=== PATIENT | female | born 1980 | race Caucasian/White ===

== ENCOUNTER 2017-03-20 19:48 | Emergency (ER) | payer BC ==
[2017-03-20 21:25] LABS: Basophils % (A) 1 %; CH 32.7; CHCM 36.4; Eosinophils # (A) 0.1 k/uL (0-0.7); Eosinophils % (A) 2 %; HCT 36.3 % (34.0-46.0); HDW 2.61; HGB 12.8 gm/dL (11.4-16.0); Luc # (Auto) 0.21; Luc % (Auto) 3; Lymphocytes # (A) 2.9 k/uL (1.0-4.8); Lymphocytes % (A) 42 %; MCH 31.8 pg (25.0-35.0); MCHC 35.2 g/dL (31.0-37.0); MCV 90.3 fL (80.0-100.0); Mean Platelet Volume 7.5; Monocytes # (A) 0.4 k/uL (0-1.0); Monocytes % (A) 6 %; Neutrophils # (A) 3.2 k/uL (1.3-7.7); Neutrophils % (A) 47 %; RBC 4.01 m/uL (3.80-5.40); RDW 13.6 % (11.5-15.5); WBC (Perox) 6.98
[2017-03-20 21:29] LABS: Appearance,Urine Clear (Clear); Bacteria,Urine Occasional /hpf; Bilirubin,Urine Negative (Negative); Glucose,Urine (UA) Negative (Negative); Ketones,Urine Negative (Negative); Leukocyte Esterase,Urine Large (Negative); Mucus,Urine Rare /hpf; Nitrite,Urine Negative (Negative); Particle Count 3045; Protein,Urine Negative (Negative); Specific Gravity,Urine 1.007 (1.001-1.035); Squamous Epithelial Cell,Urine 5 /hpf (0-4); UA Billing (MACRO vs. MICRO) MICRO; Urobilinogen,Urine <2.0 mg/dL (<2.0); WBC,Urine 20 /hpf (0-5)
--- NOTE | 2017-03-20 21:31 | ED ---
General Adult HPI - General Chief complaint: Abdominal Pain Stated complaint: Abd Pain Time Seen by Provider: 03/20/17 21:02 Source: patient, RN notes reviewed, old records reviewed Mode of arrival: ambulatory Limitations: no limitations - History of Present Illness Initial comments: 36-year-old female presents with a three-week history of abdominal pain and nausea. Patient states pain began this quite mild, with associated with nausea and no vomiting. Pain is crampy in nature. Denies significant pain at this time. When the pain is present it is sharp in nature. Over the past few weeks it has worsened primarily in the epigastric region and left side. Patient's last bowel movement was 2 days ago. This is normal for her. She denies any dysuria. Denies diarrhea. Denies fever or chills. Patient has had her gallbladder removed in the past. She's also had 2 exploratory laparoscopies for lysis of adhesions. Patient denies any recent travel, no new pets in the home. - Related Data Home Medications Medication Instructions Recorded Confirmed ALPRAZolam [Xanax] 0.25 mg PO TID PRN 08/16/15 03/20/17 Butalb/Acetaminophen/Caffeine 1 - 2 cap PO TID PRN 08/16/15 02/20/16 [Fioricet 50-300-40 mg Capsule] Desvenlafaxine Succinate [Pristiq 50 mg PO DAILY 08/16/15 03/20/17 ER] Gabapentin [Neurontin] 100 mg PO DAILY 08/16/15 03/20/17 Methocarbamol [Robaxin] 500 mg PO TID 08/16/15 03/20/17 Fluticasone Nasal [place] [Flonase 1 spray EA NOSTRIL DAILY PRN 01/12/16 03/20/17 Nasal [place]] Medroxyprogesterone Acetate 150 mg IM Q90D 01/12/16 03/20/17 [Depo-Provera] SUMAtriptan SUCCINATE [Imitrex] 100 mg PO BID PRN 01/12/16 03/20/17 Previous Rx's Medication Instructions Recorded Docusate [Colace] 100 mg PO BID #30 capsule 01/13/16 Ondansetron Odt [Zofran Odt] 4 mg PO Q8HR PRN #10 tab 03/20/17 Allergies Allergy/AdvReac Type Severity Reaction Status Date / Time codeine Allergy Hallucinati Verified 03/20/17 20:03 ons Sulfa (Sulfonamide Allergy Rash/Hives Verified 03/20/17 20:03 Antibiotics) Review of Systems ROS Statement: Those systems with pertinent positive or pertinent negative responses have been documented in the HPI. ROS Other: All systems not noted in ROS Statement are negative. Past Medical History Additional Past Medical History / Comment(s): migraines, POTS, neuropathy, Chiari malformation (brain tissue extents into spinal canal- repaired with surgery) History of Any Multi-Drug Resistant Organisms: None Reported Past Surgical History: Section, Cholecystectomy Additional Past Surgical History / Comment(s): brain surg, Past Anesthesia/Blood Transfusion Reactions: Postoperative Nausea & Vomiting ( PONV) Past Psychological History: Anxiety, Depression Smoking Status: Never smoker Past Alcohol Use History: Occasional Past Drug Use History: None Reported - Past Family History Sister(s) Additional Family Medical History / Comment(s): neurotube defect General Exam Limitations: no limitations General appearance: alert, in no apparent distress Head exam: Present: atraumatic, normocephalic Eye exam: Present: normal appearance, PERRL ENT exam: Present: normal exam, mucous membranes moist Neck exam: Present: normal inspection. Absent: tenderness, meningismus, full ROM Respiratory exam: Present: normal lung sounds bilaterally. Absent: respiratory distress, wheezes Cardiovascular Exam: Present: regular rate, normal rhythm GI/Abdominal exam: Present: soft, tenderness (Course in the left lower quadrant and epigastrium). Absent: distended, guarding, rebound, rigid Extremities exam: Present: normal inspection, full ROM, normal capillary refill Neurological exam: Present: alert, oriented X3, CN II-XII intact. Absent: motor sensory deficit Psychiatric exam: Present: normal affect, normal mood Skin exam: Present: warm, dry, intact. Absent: cyanosis, diaphoretic Course Vital Signs 03/20/17 19:59 Temperature 97.9 F Pulse Rate 78 Respiratory 18 Rate Blood Pressure 121/66 O2 Sat by Pulse 97 Oximetry - Reevaluation(s) Reevaluation #1: 03/20/17 21:49 On reevaluation, patient's pain is still mouth, she does not want anything for pain. No episodes of nausea and vomiting while in the emergency department. Medical Decision Making - Medical Decision Making 36-year-old female presenting with 3 week history of nausea and crampy abdominal pain. There is no history of vomiting. Patient's last bowel movement was 2 days ago. This is normal for her. Laboratory studies are obtained, no elevated white blood cell count, normal hemoglobin, electrolytes all within normal limits. Urinalysis just showed 20 white blood cells, and 5 squamous cells. Patient denies dysuria. No treatment will be provided at this time. X-ray shows nondistended, normal gas pattern, no free air. Patient is informed of these results. She is comfortable following up with her primary care physician. She will be given a prescription for Zofran. Encouraged to return to the emergency department with worsening symptoms. - Lab Data Result diagrams: 03/20/17 20:43 03/20/17 20:43 Lab Results 03/20/17 03/20/17 03/20/17 Range/Units 20:43 20:43 20:43 WBC 7.0 (3.8-10.6) k/uL RBC 4.01 (3.80-5.40) m/uL Hgb 12.8 (11.4-16.0) gm/dL Hct 36.3 (34.0-46.0) % MCV 90.3 (80.0-100.0) fL MCH 31.8 (25.0-35.0) pg MCHC 35.2 (31.0-37.0) g/dL RDW 13.6 (11.5-15.5) % Plt Count 231 (150-450) k/uL Neutrophils % 47 % Lymphocytes % 42 % Monocytes % 6 % Eosinophils % 2 % Basophils % 1 % Neutrophils # 3.2 (1.3-7.7) k/uL Lymphocytes # 2.9 (1.0-4.8) k/uL Monocytes # 0.4 (0-1.0) k/uL Eosinophils # 0.1 (0-0.7) k/uL Basophils # 0.0 (0-0.2) k/uL Sodium 143 (137-145) mmol/L Potassium 3.9 (3.5-5.1) mmol/L Chloride 109 H (98-107) mmol/L Carbon Dioxide 24 (22-30) mmol/L Anion Gap 10 mmol/L BUN 10 (7-17) mg/dL Creatinine 0.80 (0.52-1.04) mg/dL Est GFR (MDRD) Af Amer >60 (>60 ml/min/1.73 sqM) Est GFR (MDRD) Non-Af >60 (>60 ml/min/1.73 sqM) Glucose 75 (74-99) mg/dL Calcium 9.4 (8.4-10.2) mg/dL Total Bilirubin 0.3 (0.2-1.3) mg/dL AST 19 (14-36) U/L ALT 36 (9-52) U/L Alkaline Phosphatase 63 (38-126) U/L Total Protein 7.1 (6.3-8.2) g/dL Albumin 4.2 (3.5-5.0) g/dL Amylase 57 (30-110) U/L Lipase 145 (23-300) U/L Urine Color Urine Appearance (Clear) Urine pH (5.0-8.0) Ur Specific Randolph (1.001-1.035) Urine Protein (Negative) Urine Glucose (UA) (Negative) Urine Ketones (Negative) Urine Blood (Negative) Urine Nitrite (Negative) Urine Bilirubin (Negative) Urine Urobilinogen (<2.0) mg/dL Ur Leukocyte Esterase (Negative) Urine WBC (0-5) /hpf Ur Squamous Epith Cells (0-4) /hpf Urine Bacteria (None) /hpf Urine Mucus (None) /hpf Urine HCG, Qual Not Detected (Not Detectd) 03/20/17 Range/Units 20:43 WBC (3.8-10.6) k/uL RBC (3.80-5.40) m/uL Hgb (11.4-16.0) gm/dL Hct (34.0-46.0) % MCV (80.0-100.0) fL MCH (25.0-35.0) pg MCHC (31.0-37.0) g/dL RDW (11.5-15.5) % Plt Count (150-450) k/uL Neutrophils % % Lymphocytes % % Monocytes % % Eosinophils % % Basophils % % Neutrophils # (1.3-7.7) k/uL Lymphocytes # (1.0-4.8) k/uL Monocytes # (0-1.0) k/uL Eosinophils # (0-0.7) k/uL Basophils # (0-0.2) k/uL Sodium (137-145) mmol/L Potassium (3.5-5.1) mmol/L Chloride (98-107) mmol/L Carbon Dioxide (22-30) mmol/L Anion Gap mmol/L BUN (7-17) mg/dL Creatinine (0.52-1.04) mg/dL Est GFR (MDRD) Af Amer (>60 ml/min/1.73 sqM) Est GFR (MDRD) Non-Af (>60 ml/min/1.73 sqM) Glucose (74-99) mg/dL Calcium (8.4-10.2) mg/dL Total Bilirubin (0.2-1.3) mg/dL AST (14-36) U/L ALT (9-52) U/L Alkaline Phosphatase (38-126) U/L Total Protein (6.3-8.2) g/dL Albumin (3.5-5.0) g/dL Amylase (30-110) U/L Lipase (23-300) U/L Urine Color Light Yellow Urine Appearance Clear (Clear) Urine pH 7.0 (5.0-8.0) Ur Specific Randolph 1.007 (1.001-1.035) Urine Protein Negative (Negative) Urine Glucose (UA) Negative (Negative) Urine Ketones Negative (Negative) Urine Blood Negative (Negative) Urine Nitrite Negative (Negative) Urine Bilirubin Negative (Negative) Urine Urobilinogen <2.0 (<2.0) mg/dL Ur Leukocyte Esterase Large H (Negative) Urine WBC 20 H (0-5) /hpf Ur Squamous Epith Cells 5 H (0-4) /hpf Urine Bacteria Occasional H (None) /hpf Urine Mucus Rare H (None) /hpf Urine HCG, Qual (Not Detectd) Disposition Clinical Impression: Abdominal pain Disposition: HOME SELF-CARE Condition: Good Instructions: Abdominal Pain (ED), Acute Nausea and Vomiting (ED) Prescriptions: Ondansetron Odt [Zofran Odt] 4 mg PO Q8HR PRN #10 tab PRN Reason: Vomiting Referrals: Catrachita Valencia III, MD [Primary Care Provider] - 1-2 days Time of Disposition: 21:54
--- NOTE | 2017-03-20 21:32 | XR ---
EXAMINATION TYPE: XR KUB DATE OF EXAM: 03/20/2017 9:21 PM CLINICAL HISTORY: Epigastric and left upper quadrant pain for 3 weeks. TECHNIQUE: 2 upright KUB images of the abdomen are obtained. COMPARISON: CT abdomen and pelvis January 12, 2016. FINDINGS: Scattered gas is seen in non-distended small bowel loops. Gas and fecal material is seen in non-distended colon. Cholecystectomy clips are now present. The lung bases are clear. No pneumoperit oneum or suspicious calcification is seen. Visualized osseous structures are intact. IMPRESSION: Overall nonobstructive bowel gas pattern.
[2017-03-20 21:34] LABS: ALT 36 U/L (9-52); AST 19 U/L (14-36); Alkaline Phosphatase 63 U/L (38-126); Amylase 57 U/L (30-110); Anion Gap 10 mmol/L; Blood Urea Nitrogen 10 mg/dL (7-17); Calcium 9.4 mg/dL (8.4-10.2); Carbon Dioxide 24 mmol/L (22-30); Chloride 109 mmol/L (98-107); Glucose 75 mg/dL (74-99); Non-African American GFR(MDRD) >60 (>60 ml/min/1.73 sqM); Potassium 3.9 mmol/L (3.5-5.1); Sodium 143 mmol/L (137-145); Total Bilirubin 0.3 mg/dL (0.2-1.3); Total Protein 7.1 g/dL (6.3-8.2)
[2017-03-20 22:03] VITALS: BP 132/68; PULSE 70; RESP 16; TEMP 97.8
== END 2017-03-20 22:01 | disposition home or self-care (01) ==
LOC: EC 19:48
DX: R10.13 Epigastric pain (principal); R10.32 Left lower quadrant pain; R11.0 Nausea; F32.9 Major depressive disorder, single episode, unspecified; F41.9 Anxiety disorder, unspecified; Z79.899 Other long term (current) drug therapy; Z88.2 Allergy status to sulfonamides; Z88.5 Allergy status to narcotic agent; Z90.49 Acquired absence of other specified parts of digestive tract
CPT/HCPCS: 36415; 74000; 80053; 81001; 81025; 82150; 83605; 83690; 85025; 99284

== ENCOUNTER 2017-04-16 08:48 | Day surgery (SDC) | payer BC ==
[2017-04-15 10:55] VITALS: BMI 23.9
[~2017-04-16 08:48] MED LIST: LACTATED RINGERS 1,000 ML IV SCH; LIDOCAINE 1% 20 ML VIAL (10MG/ML) FOR IV START INTRADERMA PRN
[2017-04-16 09:14] VITALS: TEMP 98
[2017-04-16] MEDS ORDERED: LIDOCAINE 1% 20 ML VIAL (10MG/ML) FOR IV START INTRADERMA ONE (09:19)
[2017-04-16] MEDS ORDERED: LACTATED RINGERS 1,000 ML IV ONE (09:19)
[2017-04-16 09:31] LABS: Glucose,Whole Blood 74 mg/dL (75-99)
[2017-04-16] MEDS ORDERED: LIDOCAINE 1% INJ 10MG/ML (20 ML MDV) ONE (10:13)
[2017-04-16] MEDS ORDERED: PROPOFOL 10 MG/ML 20 ML VIAL IV ONE (10:13)
--- NOTE | 2017-04-16 10:38 | P.PCN ---
Date of Procedure: 04/16/17 Procedure(s) Performed: Brief history: Patient is a pleasant 36-year-old white female, scheduled for an elective upper endoscopy as well as colonoscopy as a part of evaluation of the gastric pain for the last 6 weeks duration. She also has history of chronic constipation which has been progressively getting worse. Procedure performed: Esophagogastroduodenoscopy with biopsy Colonoscopy Preoperative diagnosis: Epigastric pain and early satiety Chronic constipation Anesthesia: MAC Procedure: After informed consent was obtained from the patient was brought into the endoscopy unit and IV sedation was administered by anesthesia under continuous monitoring. Initially upper endoscopy was done. The Olympus GF 160 video endoscope was inserted inserted into the mouth and esophagus intubated without any difficulty and was gradually advanced into the stomach and duodenum and carefully examined. The bulb and second part of the duodenum appeared normal. Biopsies were done from this area to rule out celiac disease. The scope was then withdrawn into the stomach adequately insufflated with air and upon careful examination the antrum had mild diffuse gastritis and biopsies were done from this area. The body, cardia and fundus appeared normal. The scope was then withdrawn into the esophagus. The GE junction was located at 40 cm to the incisors. It appeared regular with no erythema erosions or ulcerations. biopsies were done from the esophagus. Rest of the esophagus appeared normal. Patient tolerated the procedure well. At this time the patient continued to remain sedation. Initial digital rectal examination was normal. Olympus CF 160 video colonoscope was then inserted into the rectum and gradually advanced to the cecum without any difficulty. Careful examination was performed as the scope was gradually being withdrawn. The prep was excellent. The cecum, ascending colon, transverse colon, descending colon, sigmoid colon and rectum appeared normal. Retroflexion was performed in the rectum and no lesions were noted. Patient tolerated the procedure well. Impression: 1. Upper endoscopy revealed mild diffuse gastritis but no evidence of esophagitis or peptic ulcer disease. 2. Colonoscopy was essentially within normal limits with no evidence of colitis or colorectal neoplasia. Recommendations: Findings of this examination were discussed with the patient as well as her family. She was advised to follow with the biopsy results. In the meantime she was given a prescription for Prilosec 20 mg daily to be taken half hour before breakfast and follow antrum reflux measures.
[2017-04-16 10:49] VITALS: RESP 16
[2017-04-16 11:04] VITALS: BP 133/56; PULSE 69
== END 2017-04-16 11:39 | disposition home or self-care (01) ==
LOC: ORWHC2ENDO 08:48
PROVIDERS: ATTEND Internal Medicine Gastroenterology
DX: K29.50 Unspecified chronic gastritis without bleeding (principal); K20.9 Esophagitis, unspecified; K59.00 Constipation, unspecified; R68.81 Early satiety; Z88.5 Allergy status to narcotic agent; Z88.2 Allergy status to sulfonamides; G93.5 Compression of brain; G43.909 Migraine, unspecified, not intractable, without status migrainosus; Z79.3 Long term (current) use of hormonal contraceptives; Z79.51 Long term (current) use of inhaled steroids; Z79.899 Other long term (current) drug therapy
CPT/HCPCS: 81025; 88305; 88342; 45378; 43239; J2001; J2704

== ENCOUNTER → 2019-01-30 | Outpatient (CLI) | payer BC ==
--- NOTE | 2019-01-31 10:11 | MM ---
Reason for exam: screening (asymptomatic). Last mammogram was performed 7 years and 11 months ago. History: Took hormonal contraceptives for 4 years. Physical Findings: A clinical breast exam by your physician is recommended on an annual basis and results should be correlated with mammographic findings. MG 3D Screening Mammo W/Cad Bilateral CC and MLO view(s) were taken. Prior study comparison: March 05, 2011, CAD bilateral diagnostic mammogram. The breast tissue is heterogeneously dense. This may lower the sensitivity of mammography. There is no discrete abnormality. ASSESSMENT: Negative, BI-RAD 1 RECOMMENDATION: Routine screening mammogram of both breasts in 1 year.
== END | disposition home or self-care (01) ==
LOC: RADMAMWWP 07:11
PROVIDERS: ATTEND Family Medicine
DX: Z12.31 Encounter for screening mammogram for malignant neoplasm of breast (principal)
CPT/HCPCS: 77063; 77067

== ENCOUNTER → 2019-03-10 | Outpatient (CLI) | payer BC ==
--- NOTE | 2019-03-10 14:53 | XR ---
Right elbow HISTORY: Right elbow pain and swelling 3 views the right elbow Bone mineralization, joint spaces and alignment are maintained. There is no evident joint effusion. IMPRESSION: Normal right elbow.
== END | disposition home or self-care (01) ==
LOC: LABWHC1 14:20
PROVIDERS: ATTEND Family Medicine
DX: M25.521 Pain in right elbow (principal)

== ENCOUNTER → 2019-04-28 | Outpatient (CLI) | payer BC ==
--- NOTE | 2019-04-28 14:50 | MR ---
EXAMINATION TYPE: MR cervical spine wo/w con DATE OF EXAM: 04/28/2019 COMPARISON: MRI of the cervical spine dated 01/10/2015 HISTORY: Cervical disc degeneration at C4-C5 level. Neck pain. TECHNIQUE: Multiplanar, multisequence images of the cervical spine were acquired utilizing 7 mL intravenous Gada vist gadolinium contrast. Diffusion weighted imaging was performed. FINDINGS: Cervical spine vertebral bodies maintain normal vertebral body heights and alignment. Multi level disc desiccation is seen. Spinal cord signal in the cervical spine is within normal limits. Sli ght epidural lipomatosis of the lower cervical spine and upper cervical spine posteriorly. No spinal cord compromise. No abnormal postcontrast signal within the spinal cord or cervical spine. Bone marro w signal is within normal limits. C2-C3: Broad-based disc bulge is seen without spinal canal stenosis nor neural foraminal narrowing. C3-C4: There is very mild uncovertebral hypertrophy creating minimal left neural foraminal narrowing. Right neuroforamen is patent. Disc desiccation without herniation. C4-C5: Small broad-based disc bulge, facet arthropathy and uncovertebral hypertrophy creating mild ne ural foraminal narrowing, left greater than right. No spinal canal stenosis or focal disc herniation. C5-C6: The previously seen right paracentral disc herniation has markedly improved from the prior. Ri ght eccentric disc bulge is seen with uncovertebral hypertrophy and facet arthropathy creating modera te right neural foraminal narrowing and mild left neural foraminal narrowing. No spinal canal stenosi s. C6-C7: Very small broad-based disc bulge is seen without spinal canal stenosis nor neural foraminal n arrowing. C7-T1: Disc desiccation without spinal canal stenosis or neural foraminal narrowing. No focal disc he rniation. IMPRESSION: 1. Marked improvement in the previously seen C5-C6 right paracentral disc herniation, now appearing a s a slightly eccentric broad-based disc bulge. This level there remains moderate right neural foramin al narrowing and mild left neural foraminal narrowing. 2. No new focal disc herniation. Mild multilevel degenerative disc disease with variable degrees of n eural foraminal narrowing as detailed above. 3. No abnormal enhancement of the cervical spine.
== END | disposition home or self-care (01) ==
LOC: RADMRIMAIN 12:16
PROVIDERS: ATTEND Family Medicine
DX: M48.02 Spinal stenosis, cervical region (principal); M50.222 Other cervical disc displacement at C5-C6 level
CPT/HCPCS: 72156; A9585

== ENCOUNTER 2020-11-03 20:52 | Emergency (ER) | payer BC ==
[2020-11-03 20:57] VITALS: TEMP 98.2
[2020-11-03] MEDS ORDERED: SODIUM CHLORIDE 0.9% 500 ML 500 ML IV ONE (21:13)
[2020-11-03] MEDS ORDERED: ONDANSETRON 4 MG/2 ML VIAL IVP STA (21:13)
[2020-11-03] MEDS ORDERED: SODIUM CHLORIDE 0.9% 1,000 ML IV ONE (21:13)
--- NOTE | 2020-11-03 21:38 | XR ---
EXAMINATION TYPE: XR chest 1V portable DATE OF EXAM: 11/03/2020 COMPARISON: NONE HISTORY: Weakness. Short of breath. TECHNIQUE: Single view FINDINGS: Heart and mediastinum are normal. Lungs are clear. Diaphragm is normal. Bony thorax appears normal. IMPRESSION: Normal chest.
[2020-11-03 21:47] LABS: Basophils # (A) 0.2 k/uL (0-0.2); Basophils % (A) 1 %; Eosinophils # (A) 0.2 k/uL (0-0.7); Eosinophils % (A) 1 %; HCT 42.8 % (34.0-46.0); HGB 15.1 gm/dL (11.4-16.0); Lymphocytes # (A) 4.1 k/uL (1.0-4.8); Lymphocytes % (A) 27 %; MCH 32.1 pg (25.0-35.0); MCHC 35.2 g/dL (31.0-37.0); MCV 91.2 fL (80.0-100.0); Mean Platelet Volume 6.9; Monocytes # (A) 0.9 k/uL (0-1.0); Monocytes % (A) 6 %; Neutrophils # (A) 9.6 k/uL (1.3-7.7); Neutrophils % (A) 63 %; Platelet Count 374 k/uL (150-450); RDW 12.5 % (11.5-15.5); WBC 15.1 k/uL (3.8-10.6)
[2020-11-03 22:04] LABS: ALT 42 U/L (4-34); AST 26 U/L (14-36); African American GFR (CKD) >90 (>60 ml/min/1.73 sqM); Albumin 3.8 g/dL (3.5-5.0); Alkaline Phosphatase 76 U/L (38-126); Anion Gap 7 mmol/L; Blood Urea Nitrogen 23 mg/dL (7-17); C Reactive Protein 0.5 mg/dL (<1.0); Calcium 9.8 mg/dL (8.4-10.2); Carbon Dioxide 25 mmol/L (22-30); Chloride 105 mmol/L (98-107); Glucose 95 mg/dL (74-99); LDH 446 U/L (313-618); Magnesium 2.1 mg/dL (1.6-2.3); Non-African American GFR(CKD) 82 (>60 ml/min/1.73 sqM); Potassium 4.3 mmol/L (3.5-5.1); Sodium 137 mmol/L (137-145); Total Bilirubin 0.4 mg/dL (0.2-1.3); Total Protein 6.9 g/dL (6.3-8.2)
[2020-11-03 22:16] LABS: D-Dimer 0.5 mg/L FEU (<0.60); INR 0.9 (<1.2); Prothrombin Time 9.7 sec (9.0-12.0)
--- NOTE | 2020-11-03 22:51 | ED ---
Weakness HPI - General Chief complaint: Weakness Stated complaint: COVID+, Weakness Time Seen by Provider: 11/03/20 21:05 Source: patient Mode of arrival: ambulatory Limitations: no limitations - History of Present Illness Initial comments: 40-year-old female patient presents to the emergency department today for evaluation of increased weakness, fatigue, dizziness. States she feels like she is going to pass out. States she does have a history of pots and Chiari malformation status post surgical repair. States that she did test positive for COVID and is just not feeling any better. States she has been nauseated and vomiting. Denies any diarrhea. Reports cough and states her breath is "catching" in her chest. Denies significant shortness of breath. Denies fever. Patient denies any recent rash, chest pain, abdominal pain, constipation, back pain, numbness, tingling, hematuria, dysuria, urinary urgency, urinary frequency, headache, visual changes, or any other complaints. - Related Data Home Medications Medication Instructions Recorded Confirmed ALPRAZolam [Xanax] 0.25 mg PO Q8H PRN 08/16/15 11/03/20 Fluticasone Nasal [place] [Flonase 1 spray EA NOSTRIL DAILY PRN 01/12/16 11/03/20 Nasal [place]] Medroxyprogesterone Acetate 150 mg IM Q90D 01/12/16 11/03/20 [Depo-Provera] Benzonatate [Benzonatate Perle] 200 mg PO TID PRN 11/03/20 11/03/20 Cholecalciferol [Vitamin D3 (25 25 mcg PO DAILY 11/03/20 11/03/20 Mcg = 1000 Iu)] Desvenlafaxine Succinate [Pristiq] 100 mg PO HS 11/03/20 11/03/20 Doxycycline Monohydrate [Monodox] 100 mg PO Q12H 11/03/20 11/03/20 Erythromycin Ophth Oint [Romycin 1 applic BOTH EYES QID 11/03/20 11/03/20 Ophth Oint] Ibuprofen [Motrin Ib] 600 mg PO Q8H PRN 11/03/20 11/03/20 Pseudoephedrine HCl [Sudafed] 60 mg PO Q4H PRN 11/03/20 11/03/20 Vitamin B Complex 1 cap PO DAILY 11/03/20 11/03/20 predniSONE [Deltasone] 20 mg PO BID 11/03/20 11/03/20 Previous Rx's Medication Instructions Recorded Ondansetron [Zofran ODT] 4 mg PO Q8HR PRN #10 tab 11/04/20 Allergies Allergy/AdvReac Type Severity Reaction Status Date / Time codeine Allergy "blacked Verified 11/03/20 23:00 out" Sulfa (Sulfonamide Allergy Rash/Hives Verified 11/03/20 23:00 Antibiotics) Review of Systems ROS Statement: Those systems with pertinent positive or pertinent negative responses have been documented in the HPI. ROS Other: All systems not noted in ROS Statement are negative. Past Medical History Additional Past Medical History / Comment(s): ,migraines, POTS, neuropathy, Chiari malformation (brain tissue extents into spinal canal- repaired with surgery) History of Any Multi-Drug Resistant Organisms: None Reported Past Surgical History: Section, Cholecystectomy Additional Past Surgical History / Comment(s): brain surg, Past Anesthesia/Blood Transfusion Reactions: Postoperative Nausea & Vomiting (PONV) Past Psychological History: Anxiety, Depression Past Alcohol Use History: Occasional Past Drug Use History: None Reported - Past Family History Sister(s) Additional Family Medical History / Comment(s): neurotube defect General Exam Limitations: no limitations General appearance: alert, in no apparent distress, other (Physical well- developed, well-nourished adult female patient in no acute distress. Vital signs upon presentation are temperature 98.2F, pulse 91, respirations 18, blood pressure 152/102, pulse ox 98% on room air.) Eye exam: Present: normal appearance, PERRL, EOMI. Absent: scleral icterus, conjunctival injection, periorbital swelling ENT exam: Present: normal exam, normal oropharynx, mucous membranes moist Respiratory exam: Present: normal lung sounds bilaterally. Absent: respiratory distress, wheezes, rales, rhonchi, stridor Cardiovascular Exam: Present: regular rate, normal rhythm, normal heart sounds. Absent: systolic murmur, diastolic murmur, rubs, gallop, clicks GI/Abdominal exam: Present: soft, normal bowel sounds. Absent: distended, tenderness, guarding, rebound, rigid Neurological exam: Present: alert, oriented X3, CN II-XII intact Psychiatric exam: Present: normal affect, normal mood Skin exam: Present: warm, dry, intact, normal color. Absent: rash Course Vital Signs 11/03/20 11/04/20 20:53 00:57 Temperature 98.2 F Pulse Rate 91 77 Respiratory 18 16 Rate Blood Pressure 152/102 136/76 O2 Sat by Pulse 98 98 Oximetry Medical Decision Making - Medical Decision Making 40-year-old female patient presents to the emergency department today for evaluation of nausea vomiting, dizziness. She did test positive for COVID-19 and symptoms seem to be worsening. Physical examination is unremarkable. Abdomen soft and nontender. She is afebrile, vital signs. Labs reviewed and did reveal elevated white blood cell, most likely reactive from vomiting. Urinalysis is negative for infection. She has no fever. She is given IV fluids and nausea medication. Upon reevaluation she is resting comfortably in bed. She'll be discharged follow-up with her primary care physician for recheck in 1- 2 days. Return parameters were discussed in detail. She verbalizes understanding and agrees with this plan. My attending is Dr. Gleason. - Lab Data Result diagrams: 11/03/20 21:34 11/03/20 21:34 Lab Results 11/03/20 11/03/20 11/03/20 Range/Units 21:34 21:34 21:34 WBC 15.1 H (3.8-10.6) k/uL RBC 4.70 (3.80-5.40) m/uL Hgb 15.1 (11.4-16.0) gm/dL Hct 42.8 (34.0-46.0) % MCV 91.2 (80.0-100.0) fL MCH 32.1 (25.0-35.0) pg MCHC 35.2 (31.0-37.0) g/dL RDW 12.5 (11.5-15.5) % Plt Count 374 (150-450) k/uL MPV 6.9 Neutrophils % 63 % Lymphocytes % 27 % Monocytes % 6 % Eosinophils % 1 % Basophils % 1 % Neutrophils # 9.6 H (1.3-7.7) k/uL Lymphocytes # 4.1 (1.0-4.8) k/uL Monocytes # 0.9 (0-1.0) k/uL Eosinophils # 0.2 (0-0.7) k/uL Basophils # 0.2 (0-0.2) k/uL PT 9.7 (9.0-12.0) sec INR 0.9 (<1.2) APTT 20.0 L (22.0-30.0) sec D-Dimer 0.50 (<0.60) mg/L FEU Sodium 137 (137-145) mmol/L Potassium 4.3 (3.5-5.1) mmol/L Chloride 105 (98-107) mmol/L Carbon Dioxide 25 (22-30) mmol/L Anion Gap 7 mmol/L BUN 23 H (7-17) mg/dL Creatinine 0.88 (0.52-1.04) mg/dL Est GFR (CKD-EPI)AfAm >90 (>60 ml/min/1.73 sqM) Est GFR (CKD-EPI)NonAf 82 (>60 ml/min/1.73 sqM) Glucose 95 (74-99) mg/dL Plasma Lactic Acid Juice (0.7-2.0) mmol/L Calcium 9.8 (8.4-10.2) mg/dL Magnesium 2.1 (1.6-2.3) mg/dL Total Bilirubin 0.4 (0.2-1.3) mg/dL AST 26 (14-36) U/L ALT 42 H (4-34) U/L Alkaline Phosphatase 76 (38-126) U/L Lactate Dehydrogenase 446 (313-618) U/L C-Reactive Protein 0.5 (<1.0) mg/dL Total Protein 6.9 (6.3-8.2) g/dL Albumin 3.8 (3.5-5.0) g/dL Urine Color Urine Appearance (Clear) Urine pH (5.0-8.0) Ur Specific [place] (1.001-1.035) Urine Protein (Negative) Urine Glucose (UA) (Negative) Urine Ketones (Negative) Urine Blood (Negative) Urine Nitrite (Negative) Urine Bilirubin (Negative) Urine Urobilinogen (<2.0) mg/dL Ur Leukocyte Esterase (Negative) Urine HCG, Qual (Not Detectd) 11/03/20 11/03/20 11/03/20 Range/Units 21:34 22:55 22:55 WBC (3.8-10.6) k/uL RBC (3.80-5.40) m/uL Hgb (11.4-16.0) gm/dL Hct (34.0-46.0) % MCV (80.0-100.0) fL MCH (25.0-35.0) pg MCHC (31.0-37.0) g/dL RDW (11.5-15.5) % Plt Count (150-450) k/uL MPV Neutrophils % % Lymphocytes % % Monocytes % % Eosinophils % % Basophils % % Neutrophils # (1.3-7.7) k/uL Lymphocytes # (1.0-4.8) k/uL Monocytes # (0-1.0) k/uL Eosinophils # (0-0.7) k/uL Basophils # (0-0.2) k/uL PT (9.0-12.0) sec INR (<1.2) APTT (22.0-30.0) sec D-Dimer (<0.60) mg/L FEU Sodium (137-145) mmol/L Potassium (3.5-5.1) mmol/L Chloride (98-107) mmol/L Carbon Dioxide (22-30) mmol/L Anion Gap mmol/L BUN (7-17) mg/dL Creatinine (0.52-1.04) mg/dL Est GFR (CKD-EPI)AfAm (>60 ml/min/1.73 sqM) Est GFR (CKD-EPI)NonAf (>60 ml/min/1.73 sqM) Glucose (74-99) mg/dL Plasma Lactic Acid Juice 1.3 (0.7-2.0) mmol/L Calcium (8.4-10.2) mg/dL Magnesium (1.6-2.3) mg/dL Total Bilirubin (0.2-1.3) mg/dL AST (14-36) U/L ALT (4-34) U/L Alkaline Phosphatase (38-126) U/L Lactate Dehydrogenase (313-618) U/L C-Reactive Protein (<1.0) mg/dL Total Protein (6.3-8.2) g/dL Albumin (3.5-5.0) g/dL Urine Color Yellow Urine Appearance Clear (Clear) Urine pH 6.5 (5.0-8.0) Ur Specific [place] 1.015 (1.001-1.035) Urine Protein Negative (Negative) Urine Glucose (UA) Negative (Negative) Urine Ketones Negative (Negative) Urine Blood Negative (Negative) Urine Nitrite Negative (Negative) Urine Bilirubin Negative (Negative) Urine Urobilinogen <2.0 (<2.0) mg/dL Ur Leukocyte Esterase Negative (Negative) Urine HCG, Qual Not Detected (Not Detectd) Disposition Clinical Impression: COVID-19 Disposition: HOME SELF-CARE Condition: Good Instructions (If sedation given, give patient instructions): Coronavirus Disease 2019 (COVID-19) Additional Instructions: Use nausea medication. Increase fluids. Rest. Follow-up with the primary care physician for recheck in 1-2 days. Return to the emergency department for any new, worsening, or concerning symptoms. Prescriptions: Ondansetron [Zofran ODT] 4 mg PO Q8HR PRN #10 tab PRN Reason: Nausea Is patient prescribed a controlled substance at d/c from ED?: No Referrals: Nirav Castillo MD [Primary Care Provider] - 1-2 days Time of Disposition: 00:48
[2020-11-03 23:58] LABS: Appearance,Urine Clear (Clear); Bilirubin,Urine Negative (Negative); Blood,Urine Negative (Negative); Color,Urine Yellow; Glucose,Urine (UA) Negative (Negative); Ketones,Urine Negative (Negative); Leukocyte Esterase,Urine Negative (Negative); Nitrite,Urine Negative (Negative); PH, Urine 6.5 (5.0-8.0); Protein,Urine Negative (Negative); Specific Gravity,Urine 1.015 (1.001-1.035); Urobilinogen,Urine <2.0 mg/dL (<2.0)
[2020-11-04 00:58] VITALS: BP 136/76; PULSE 77; RESP 16
[2020-11-04 10:38] LABS: Ferritin 98.5 ng/mL (10.0-291.0)
== END 2020-11-04 00:58 | disposition home or self-care (01) ==
LOC: EC 20:52
DX: U07.1 COVID-19 (principal); F32.9 Major depressive disorder, single episode, unspecified; F41.9 Anxiety disorder, unspecified; Z79.899 Other long term (current) drug therapy
CPT/HCPCS: 36415; 93005; 85379; 80053; 82728; 83605; 83615; 83735; 85025; 85610; 85730; 86140; 81003; 81025; 84145; 71045; 99285; 96374; J2405

== ENCOUNTER 2024-08-11 06:58 | Emergency (ER) | payer BC ==
[2024-08-11 07:27] VITALS: TEMP 97.1
--- NOTE | 2024-08-11 07:38 | ED ---
Back Pain HPI - General Chief Complaint: Back Pain/Injury Stated Complaint: Back Pain Time Seen by Provider: 08/11/24 07:07 Source: patient, RN notes reviewed - History of Present Illness Initial Comments: Patient is a 43 year old female presenting with worsening upper back and neck pain since x 1 day. She states for the past 3 weeks, she has had upper back and neck pain, but it has significantly worsened since last night. She states the pain is more prominent on the left, but is still present on the right. She notes that this is a constant, stabbing pain that feels "like something is catching", reproducible and a 8/10 intensity. She states that the pain has started to radiate slightly to the left arm, but is mainly numbness. She states that she has used a tens unit and "a gummy" for the pain, neither of which have helped. She states having chronic neuropathy in her right upper back and neck from a chiari malformation surgery 10 years ago, which she denies any other complications from. She denies any injury or trauma to this area. She denies any chest pain, shortness of breath, headache, vision changes, urinary or bowel changes, or lower back pain. Of note, she endorses a sinus infection 10 days ago, and she finished a course of Cefdinir, which has resolved with mild residual cough. - Related Data Home Medications Medication Instructions Recorded Confirmed ALPRAZolam [Xanax] 0.25 mg PO Q8H PRN 08/16/15 11/03/20 Fluticasone Nasal [place] [Flonase 1 spray EA NOSTRIL DAILY PRN 01/12/16 11/03/20 Nasal [place]] Medroxyprogesterone Acetate 150 mg IM Q90D 01/12/16 11/03/20 [Depo-Provera] Benzonatate [Benzonatate Perle] 200 mg PO TID PRN 11/03/20 11/03/20 Cholecalciferol [Vitamin D3 (25 25 mcg PO DAILY 11/03/20 11/03/20 Mcg = 1000 Iu)] Desvenlafaxine Succinate [Pristiq] 100 mg PO HS 11/03/20 11/03/20 Doxycycline Monohydrate [Monodox] 100 mg PO Q12H 11/03/20 11/03/20 Erythromycin Ophth Oint [Romycin 1 applic BOTH EYES QID 11/03/20 11/03/20 Ophth Oint] Ibuprofen [Motrin Ib] 600 mg PO Q8H PRN 11/03/20 11/03/20 Pseudoephedrine HCl [Sudafed] 60 mg PO Q4H PRN 11/03/20 11/03/20 Vitamin B Complex 1 cap PO DAILY 11/03/20 11/03/20 predniSONE [Deltasone] 20 mg PO BID 11/03/20 11/03/20 Previous Rx's Medication Instructions Recorded Ondansetron [Zofran ODT] 4 mg PO Q8HR PRN #10 tab 11/04/20 Cyclobenzaprine [Flexeril] 10 mg PO TID PRN #20 tab 08/11/24 Ibuprofen [Motrin] 600 mg PO Q8HR PRN #20 tab 08/11/24 Allergies Allergy/AdvReac Type Severity Reaction Status Date / Time codeine Allergy "blacked Verified 08/11/24 07:06 out" Sulfa (Sulfonamide Allergy Rash/Hives Verified 08/11/24 07:06 Antibiotics) Review of Systems ROS Statement: Those systems with pertinent positive or pertinent negative responses have been documented in the HPI. ROS Other: All systems not noted in ROS Statement are negative. Past Medical History Additional Past Medical History / Comment(s): ,migraines, POTS, neuropathy, Chiari malformation (brain tissue extents into spinal canal- repaired with surgery) History of Any Multi-Drug Resistant Organisms: None Reported Past Surgical History: Section, Cholecystectomy Additional Past Surgical History / Comment(s): brain surg, Past Anesthesia/Blood Transfusion Reactions: Postoperative Nausea & Vomiting (PONV) Past Psychological History: Anxiety, Depression Smoking Status: Never smoker Past Alcohol Use History: Occasional Past Drug Use History: Marijuana - Past Family History Sister(s) Additional Family Medical History / Comment(s): neurotube defect General Exam General appearance: alert, in no apparent distress, anxious Head exam: Present: atraumatic, normocephalic, normal inspection Eye exam: Present: normal appearance, PERRL, EOMI. Absent: scleral icterus, conjunctival injection, periorbital swelling Neck exam: Present: tenderness, full ROM (8/10 elicited for all ROM) Respiratory exam: Present: normal lung sounds bilaterally. Absent: respiratory distress, wheezes, rales, rhonchi, stridor Cardiovascular Exam: Present: normal rhythm, tachycardia GI/Abdominal exam: Present: soft, normal bowel sounds. Absent: distended, tenderness, guarding, rebound, rigid Back exam: Present: tenderness (Upper thoracic TTP, erythema) Neurological exam: Present: alert, oriented X3, CN II-XII intact Skin exam: Present: warm, dry, intact, normal color, erythema (upper back/neck). Absent: rash Course Vital Signs 08/11/24 08/11/24 07:03 07:26 Temperature 98.2 F 97.1 F L Pulse Rate 114 H 114 H Respiratory 18 18 Rate Blood Pressure 162/97 179/110 O2 Sat by Pulse 97 98 Oximetry Medical Decision Making - Medical Decision Making Was pt. sent in by a medical professional or institution ([facility], MEMS PROCESS ENGINEER, urgent care, hospital, or fpc...) When possible be specific @ -No Did you speak to anyone other than the patient for history (EMS, parent, family, police, friend...)? What history was obtained from this source @ -No Did you review nursing and triage notes (agree or disagree)? Why? @ -I reviewed and agree with nursing and triage notes Were old charts reviewed (outside hosp., previous admission, EMS record, old EKG, old radiological studies, urgent care reports/EKG's, fpc records)? Report findings @ -No old charts were reviewed Differential Diagnosis (chest pain, altered mental status, abdominal pain women, abdominal pain men, vaginal bleeding, weakness, fever, dyspnea, syncope, headache, dizziness, GI bleed, back pain, seizure, CVA, palpatations, mental health, musculoskeletal)? @ -Thoracic, cervical muscle strain, muscle spasms EKG interpreted by me (3pts min.). @ -None X-rays interpreted by me (1pt min.). @ -X-ray cervical spine showing mild degenerative changes C3-C4 X-ray thoracic spine 2 view no acute Leiser malady no malalignment or lesions CT interpreted by me (1pt min.). @ -None done U/S interpreted by me (1pt. min.). @ -None done What testing was considered but not performed or refused? (CT, X-rays, U/S, labs)? Why? @ -None What meds were considered but not given or refused? Why? @ -None Did you discuss the management of the patient with other professionals (professionals i.e. , PA, MEMS PROCESS ENGINEER, lab, RT, psych nurse, certified social workers in health care, hand ii tube bender, teacher, ecological technical officer, case supervisor)? Give summary @ -No Was smoking cessation discussed for >3mins.? @ -No Was critical care preformed (if so, how long)? @ -No Were there social determinants of health that impacted care today? How? (Homelessness, low income, unemployed, alcoholism, drug addiction, transportation, low edu. Level, literacy, decrease access to med. care, [facility], rehab)? @ -No Was there de-escalation of care discussed even if they declined (Discuss DNR or withdrawal of care, Hospice)? DNR status @ -No What co-morbidities impacted this encounter? (DM, HTN, Smoking, COPD, CAD, Cancer, CVA, ARF, Chemo, Hep., AIDS, mental health diagnosis, sleep apnea, morbid obesity)? @ -None Was patient admitted / discharged? Hospital course, mention meds given and route, prescriptions, significant lab abnormalities, going to OR and other pertinent info. @ -Discharge patient had improved after her Toradol, Norflex. Patient was discharged on Flexeril and ibuprofen. Patient continue topicals, gentle stretching and follow-up. Undiagnosed new problem with uncertain prognosis? @ -No Drug Therapy requiring intensive monitoring for toxicity (Heparin, Nitro, Insulin, Cardizem)? @ -No Were any procedures done? @ -No Diagnosis/symptom? @ -Thoracic, cervical muscle spasm Acute, or Chronic, or Acute on Chronic? @ -Acute Uncomplicated (without systemic symptoms) or Complicated (systemic symptoms)? @ -uncomplicated Side effects of treatment? @ -No Exacerbation, Progression, or Severe Exacerbation? @ -No Poses a threat to life or bodily function? How? (Chest pain, [place], [place], pneumonia, PE, COPD, DKA, ARF, appy, cholecystitis, CVA, Diverticulitis, Homicidal, Suicidal, threat to staff... and all critical care pts) @ -No Disposition Clinical Impression: Spasm of thoracic back muscle, Cervical paraspinous muscle spasm Disposition: HOME SELF-CARE Condition: Stable Instructions (If sedation given, give patient instructions): Muscle Spasm (ED) Additional Instructions: Please return to the Emergency Department if symptoms worsen or any other concerns. Prescriptions: Cyclobenzaprine [Flexeril] 10 mg PO TID PRN #20 tab PRN Reason: Muscle Spasm Ibuprofen [Motrin] 600 mg PO Q8HR PRN #20 tab PRN Reason: Pain Is patient prescribed a controlled substance at d/c from ED?: No Referrals: Bernice Groves MD [Primary Care Provider] - 1-2 days Time of Disposition: 08:55
[2024-08-11] MEDS: ORPHENADRINE 30 MG/ML 2 ML VIAL IVP STA (07:43)
[2024-08-11] MEDS: KETOROLAC 15 MG/ML 1 ML VIAL IVP STA (07:47)
--- NOTE | 2024-08-11 08:16 | XR ---
EXAMINATION TYPE: XR cervical spine comp DATE OF EXAM: 08/11/2024 8:10 AM COMPARISON: None. CLINICAL INDICATION: Female, 43 years old with history of neck pain, pain TECHNIQUE: 5 view(s) obtained. FINDINGS: Vertebral body alignment is preserved. Some mild posterior disc space narrowing is present C3-4 C5-6 C6-7. Posterior spinal lamellar line is intact. Prevertebral space is normal. There is some mild fora nishant narrowing present at C5-6 C6-7 on the right. Minimal foraminal narrowing may be present C4-5 C5 -6 on the left. Tip of the odontoid is limited with overlying occiput. IMPRESSION: 1. Mild right and minimal left mid cervical foraminal narrowing. 2. Degenerative disc changes greatest at C3-4 [facility], , 08/11/2024 8:14 AM
--- NOTE | 2024-08-11 08:17 | XR ---
EXAMINATION TYPE: XR thoracic spine 2V DATE OF EXAM: 08/11/2024 8:10 AM COMPARISON: None. CLINICAL INDICATION: Female, 43 years old with history of neck pain, pain TECHNIQUE: 3 view(s) obtained. FINDINGS: There are 12 thoracic type vertebral bodies. Pedicles are intact. Disc heights are preserved. Vertebr al body heights are preserved. Alignment appears normal. IMPRESSION: 1. No acute osseous abnormality thoracic spine [facility], , 08/11/2024 8:15 AM
[2024-08-11 09:07] VITALS: BP 172/89; PULSE 90; RESP 16
== END 2024-08-11 09:25 | disposition home or self-care (01) ==
LOC: EC 06:58
DX: M62.830 Muscle spasm of back (principal); M50.31 Other cervical disc degeneration, high cervical region; Z88.5 Allergy status to narcotic agent; Z88.2 Allergy status to sulfonamides
CPT/HCPCS: 99283; 96374; 96375; 72070; 72050; J2360; J1885

== ENCOUNTER 2024-10-23 18:51 | Emergency (ER) | payer BC ==
[2024-10-23 19:05] VITALS: RESP 20; TEMP 98.5
[2024-10-23] MEDS: hydrALAZINE HCL 20 MG/ML 1 ML VIAL IVP STA (19:46)
[2024-10-23 19:53] LABS: Basophils # (A) 0.09 10*3/uL (0.00-0.10); Basophils % (A) 0.7 %; Eosinophils # (A) 0.16 10*3/uL (0.04-0.35); Eosinophils % (A) 1.2 %; HCT 45.5 % (37.2-46.3); HGB 16.3 g/dL (12.0-15.0); Lymphocytes % (A) 23.2 %; MCHC 35.8 g/dL (32.0-37.0); Mean Platelet Volume 9.6 fL (9.5-12.2); Monocytes # (A) 0.94 10*3/uL (0.20-1.00); Monocytes % (A) 7.3 %; Neutrophils # (A) 8.65 10*3/uL (1.80-7.70); Neutrophils % (A) 67.1 %; Platelet Count 334 10*3/uL (140-440); RBC 4.79 10*6/uL (4.10-5.20); RDW 12.9 % (11.5-14.5); WBC 12.91 10*3/uL (4.50-10.00)
--- NOTE | 2024-10-23 19:57 | XR ---
EXAMINATION TYPE: XR chest 2V DATE OF EXAM: 10/23/2024 CLINICAL INDICATION: Female, 44 years old with history of HTN, TECHNIQUE: Frontal and lateral views of the chest are obtained. COMPARISON: Chest x-ray November 03, 2020 FINDINGS: There is no focal air space opacity, pleural effusion, or pneumothorax seen. The cardiac silhouette size is within normal limits. The osseous structures are intact. Cholecystectomy clips a re present. IMPRESSION: No acute cardiopulmonary process. [facility], , 10/23/2024 7:55 PM
--- NOTE | 2024-10-23 19:59 | ED ---
General Adult HPI - General Chief complaint: Headache Stated complaint: Headache, Irreg Blood Pressure Time Seen by Provider: 10/23/24 19:03 Source: patient, RN notes reviewed Mode of arrival: ambulatory Limitations: no limitations - History of Present Illness Initial comments: This is a 44-year-old female with history of Chiari malformation, migraines and POTS presenting with hypertension starting at 1200 today. Patient states blood pressure has been steadily increasing for the past 2 to 3 months and has not become concerning, going as high as 188/112 mmHg. Patient states she usually has low blood pressure and that this is highly unusual for her. Endorses associated tinnitus, which can be common for her and new blurred vision and frontal headache (/10). Denies fever, chills, neck stiffness, dizziness, photophobia, phonophobia, chest pain, dyspnea, N/V/D. Onset/Timin -: hour(s) Time: 12:00 Severity scale (1-10): 3 Consistency: constant Associated Symptoms: other - Related Data Home Medications Medication Instructions Recorded Confirmed Fluticasone Nasal [place] [Flonase 1 spray EA NOSTRIL DAILY 01/12/16 10/23/24 Nasal [place]] Medroxyprogesterone Acetate 150 mg IM Q90D 01/12/16 10/23/24 [Depo-Provera] Desvenlafaxine Succinate [Pristiq] 100 mg PO DAILY 11/03/20 10/23/24 Cetirizine HCl [Zyrtec] 10 mg PO DAILY 10/23/24 10/23/24 Fexofenadine HCl [Shelly Allergy] 180 mg PO DAILY 10/23/24 10/23/24 Omeprazole Magnesium [PriLOSEC OTC] 20 mg PO DAILY 10/23/24 10/23/24 buPROPion XL [Wellbutrin XL] 150 mg PO DAILY 10/23/24 10/23/24 Allergies Allergy/AdvReac Type Severity Reaction Status Date / Time codeine Allergy "blacked Verified 10/23/24 20:19 out" Sulfa (Sulfonamide Allergy Rash/Hives Verified 10/23/24 20:19 Antibiotics) Review of Systems ROS Statement: Those systems with pertinent positive or pertinent negative responses have been documented in the HPI. ROS Other: All systems not noted in ROS Statement are negative. Past Medical History Additional Past Medical History / Comment(s): ,migraines, POTS, neuropathy, Chiari malformation (brain tissue extents into spinal canal- repaired with surgery) History of Any Multi-Drug Resistant Organisms: None Reported Past Surgical History: Section, Cholecystectomy Additional Past Surgical History / Comment(s): brain surg, Past Anesthesia/Blood Transfusion Reactions: Postoperative Nausea & Vomiting (PONV) Past Psychological History: Anxiety, Depression Smoking Status: Never smoker Past Alcohol Use History: Occasional Past Drug Use History: Marijuana - Past Family History Sister(s) Additional Family Medical History / Comment(s): neurotube defect General Exam Limitations: no limitations General appearance: alert, in no apparent distress Head exam: Present: atraumatic, normocephalic, normal inspection Eye exam: Present: normal appearance, PERRL, EOMI. Absent: scleral icterus, conjunctival injection, periorbital swelling ENT exam: Present: normal exam, mucous membranes moist, TM's normal bilaterally Neck exam: Present: normal inspection. Absent: tenderness, meningismus, lymphadenopathy Respiratory exam: Present: normal lung sounds bilaterally. Absent: respiratory distress, wheezes, rales, rhonchi, stridor, accessory muscle use, decreased [place] sounds, prolonged expiratory Cardiovascular Exam: Present: normal rhythm, tachycardia, normal heart sounds. Absent: systolic murmur, diastolic murmur, rubs, gallop, clicks GI/Abdominal exam: Present: soft, normal bowel sounds. Absent: distended, tenderness, guarding, rebound, rigid, mass, pulsatile mass Extremities exam: Present: normal inspection, full ROM, normal capillary refill. Absent: tenderness, pedal edema, joint swelling, calf tenderness Back exam: Present: normal inspection Neurological exam: Present: alert, oriented X3, CN II-XII intact Psychiatric exam: Present: normal affect, normal mood Skin exam: Present: warm, dry, intact, normal color. Absent: rash Course Vital Signs 10/23/24 10/23/24 10/23/24 19:03 20:05 20:34 Temperature 98.5 F Pulse Rate 107 H 130 H 110 H Respiratory 20 20 20 Rate Blood Pressure 188/112 158/94 142/82 O2 Sat by Pulse 96 98 96 Oximetry 10/23/24 10/23/24 21:29 23:18 Temperature Pulse Rate 115 H 105 H Respiratory 20 20 Rate Blood Pressure 140/80 130/70 O2 Sat by Pulse 98 97 Oximetry Medical Decision Making - Medical Decision Making Was pt. sent in by a medical professional or institution (HA Santos, CONSTRUCTION TR[employer]ES CONTRACTOR, urgent care, hospital, or half-way...) When possible be specific @ -No Did you speak to anyone other than the patient for history (EMS, parent, family, police, friend...)? What history was obtained from this source @ -No Did you review nursing and triage notes (agree or disagree)? Why? @ -I reviewed and agree with nursing and triage notes Were old charts reviewed (outside hosp., previous admission, EMS record, old EKG, old radiological studies, urgent care reports/EKG's, half-way records)? Report findings @ -No old charts were reviewed Differential Diagnosis (chest pain, altered mental status, abdominal pain women, abdominal pain men, vaginal bleeding, weakness, fever, dyspnea, syncope, heada bry, dizziness, GI bleed, back pain, seizure, CVA, palpatations, mental health, musculoskeletal)? @ -Differential Headache: Migraine, tension, cluster, carbon monoxide, central venous thrombosis, pension karma temporal arteritis, acute closure glaucoma, intercranial hemorrhage, mastoiditis, sinusitis, head injury, this is not meant to be an all-inclusive list. EKG interpreted by me (3pts min.). @ -Sinus tachycardia without ST deviation or T wave inversion. Ventricular rate 115 bpm, VANESSA 146 ms, QRS 84 ms, QTc 397 ms. X-rays interpreted by me (1pt min.). @ -CXR shows no acute cardiopulmonary process CT interpreted by me (1pt min.). @ -None done U/S interpreted by me (1pt. min.). @ -None done What testing was considered but not performed or refused? (CT, X-rays, U/S, labs)? Why? @ -None What meds were considered but not given or refused? Why? @ -None Did you discuss the management of the patient with other professionals (professionals i.e. HA Santos, CONSTRUCTION TRADES CONTRACTOR, lab, RT, psych nurse, outreach and education social worker, batch maker, teacher, bank operations officer, case management associate)? Give summary @ -No Was smoking cessation discussed for >3mins.? @ -No Was critical care preformed (if so, how long)? @ -No Were there social determinants of health that impacted care today? How? (Homelessness, low income, unemployed, alcoholism, drug addiction, transportation, low edu. Level, literacy, decrease access to med. care, fdc, rehab)? @ -No Was there de-escalation of care discussed even if they declined (Discuss DNR or withdrawal of care, Hospice)? DNR status @ -No What co-morbidities impacted this encounter? (DM, HTN, Smoking, COPD, CAD, Cancer, CVA, ARF, Chemo, Hep., AIDS, mental health diagnosis, sleep apnea, morbid obesity)? @ -Chiari malformation Was patient admitted / discharged? Hospital course, mention meds given and ro yuliana, prescriptions, significant lab abnormalities, going to OR and other pertinent info. @ -Lab work shows leukocytosis to 12.9, hyperglycemia 111, hypercalcemia 10.5 and slightly elevated liver enzymes. Troponin, UA and urine hCG negative. CXR shows no acute cardiopulmonary process. Patient initially provided IV hydralazine followed by IV Valium for anxiety. Patient continues to have anxiety, tachypneic and tearful, given 1 mg IV Ativan. Ongoing tachycardia and rebound hypertension noted during stay. Given IV normal saline, labetalol, Compazine, Benadryl and Toradol with normalization of vital signs afterwards patient states she is feeling better and ready for discharge with follow-up to PCP. Discussed patient with Dr. Ruiz. Undiagnosed new problem with uncertain prognosis? @ -No Drug Therapy requiring intensive monitoring for toxicity (Heparin, Nitro, In sulin, Cardizem)? @ -No Were any procedures done? @ -No Diagnosis/symptom? @ -Hypertension, anxiety, headache Acute, or Chronic, or Acute on Chronic? @ -Acute Uncomplicated (without systemic symptoms) or Complicated (systemic symptoms)? @ -Complicated Side effects of treatment? @ -No Exacerbation, Progression, or Severe Exacerbation? @ -Progression Poses a threat to life or bodily function? How? (Chest pain, [place], [place], pneumonia, PE, COPD, DKA, ARF, appy, cholecystitis, CVA, Diverticulitis, Homicidal, Suicidal, threat to staff... and all critical care pts) @ -No - Lab Data Result diagrams: 10/23/24 19:40 10/23/24 19:40 Lab Results 10/23/24 10/23/2425 Range/Units 19:40 19:40 19:40 WBC 12.91 H (4.50-10.00) 10*3/uL RBC 4.79 (4.10-5.20) 10*6/uL Hgb 16.3 H (12.0-15.0) g/dL Hct 45.5 (37.2-46.3) % MCV 95.0 (80.0-97.0) fL MCH 34.0 H (27.0-32.0) pg MCHC 35.8 (32.0-37.0) g/dL Plt Count 334 (140-440) 10*3/uL MPV 9.6 (9.5-12.2) fL Immature Gran % (Auto) 0.5 % Neutrophils % 67.1 % Lymphocytes % 23.2 % Monocytes % 7.3 % Eosinophils % 1.2 % Basophils % 0.7 % Immature Gran # 0.07 H (0.00-0.04) 10*3/uL Neutrophils # 8.65 H (1.80-7.70) 10*3/uL Lymphocytes # 3.00 (0.90-5.00) 10*3/uL Monocytes # 0.94 (0.20-1.00) 10*3/uL Eosinophils # 0.16 (0.04-0.35) 10*3/uL Basophils # 0.09 (0.00-0.10) 10*3/uL PT (10.0-12.5) sec INR (<1.2) APTT (22.0-30.0) sec Sodium 137 (137-145) mmol/L Potassium 3.6 (3.5-5.1) mmol/L Chloride 102 (98-107) mmol/L Carbon Dioxide 19 L (22-30) mmol/L Anion Gap 16 mmol/L BUN 13 (7-17) mg/dL Creatinine 0.82 (0.52-1.04) mg/dL Est GFR (CKD-EPI)AfAm >90 (>60 ml/min/1.73 sqM) Est GFR (CKD-EPI)NonAf 86 (>60 ml/min/1.73 sqM) Glucose 111 H (74-99) mg/dL Calcium 10.5 H (8.4-10.2) mg/dL Total Bilirubin 1.0 (0.2-1.3) mg/dL AST 73 H (14-36) U/L ALT 80 H (4-34) U/L Alkaline Phosphatase 112 (38-126) U/L Troponin I <0.012 (0.000-0.034) ng/mL Total Protein 8.5 H (6.3-8.2) g/dL Albumin 4.8 (3.5-5.0) g/dL Urine Color Urine Appearance (Clear) Urine pH (5.0-8.0) Ur Specific [place] (1.001-1.035) Urine Protein (Negative) Urine Glucose (UA) (Negative) Urine Ketones (Negative) Urine Blood (Negative) Urine Nitrite (Negative) Urine Bilirubin (Negative) Urine Urobilinogen (<2.0) mg/dL Ur Leukocyte Esterase (Negative) Urine HCG, Qual (Not Detectd) 10/23/24 10/23/24 10/23/24 Range/Units 19:40 20:20 20:28 WBC (4.50-10.00) 10*3/uL RBC (4.10-5.20) 10*6/uL Hgb (12.0-15.0) g/dL Hct (37.2-46.3) % MCV (80.0-97.0) fL MCH (27.0-32.0) pg MCHC (32.0-37.0) g/dL Plt Count (140-440) 10*3/uL MPV (9.5-12.2) fL Immature Gran % (Auto) % Neutrophils % % Lymphocytes % % Monocytes % % Eosinophils % % Basophils % % Immature Gran # (0.00-0.04) 10*3/uL Neutrophils # (1.80-7.70) 10*3/uL Lymphocytes # (0.90-5.00) 10*3/uL Monocytes # (0.20-1.00) 10*3/uL Eosinophils # (0.04-0.35) 10*3/uL Basophils # (0.00-0.10) 10*3/uL PT 10.2 (10.0-12.5) sec INR 0.9 (<1.2) APTT 22.3 (22.0-30.0) sec Sodium (137-145) mmol/L Potassium (3.5-5.1) mmol/L Chloride (98-107) mmol/L Carbon Dioxide (22-30) mmol/L Anion Gap mmol/L BUN (7-17) mg/dL Creatinine (0.52-1.04) mg/dL Est GFR (CKD-EPI)AfAm (>60 ml/min/1.73 sqM) Est GFR (CKD-EPI)NonAf (>60 ml/min/1.73 sqM) Glucose (74-99) mg/dL Calcium (8.4-10.2) mg/dL Total Bilirubin (0.2-1.3) mg/dL AST (14-36) U/L ALT (4-34) U/L Alkaline Phosphatase (38-126) U/L Troponin I (0.000-0.034) ng/mL Total Protein (6.3-8.2) g/dL Albumin (3.5-5.0) g/dL Urine Color Colorless Urine Appearance Clear (Clear) Urine pH 6.0 (5.0-8.0) Ur Specific [place] 1.004 (1.001-1.035) Urine Protein Negative (Negative) Urine Glucose (UA) Negative (Negative) Urine Ketones Negative (Negative) Urine Blood Negative (Negative) Urine Nitrite Negative (Negative) Urine Bilirubin Negative (Negative) Urine Urobilinogen <2.0 (<2.0) mg/dL Ur Leukocyte Esterase Negative (Negative) Urine HCG, Qual Not Detected (Not Detectd) Disposition Clinical Impression: Tension headache, Anxiety, Hypertension Disposition: HOME SELF-CARE Condition: Good Instructions (If sedation given, give patient instructions): Hypertension (ED) Additional Instructions: Follow-up with PCP in the next 24-48 hours for ongoing management of elevated blood pressure and anxiety Is patient prescribed a controlled substance at d/c from ED?: No Referrals: Bernice Groves MD [Primary Care Provider] - 1-2 days Time of Disposition: 23:03
[2024-10-23 20:05] LABS: ALT 80 U/L (4-34); AST 73 U/L (14-36); African American GFR (CKD) >90 (>60 ml/min/1.73 sqM); Albumin 4.8 g/dL (3.5-5.0); Alkaline Phosphatase 112 U/L (38-126); Anion Gap 16 mmol/L; Blood Urea Nitrogen 13 mg/dL (7-17); Calcium 10.5 mg/dL (8.4-10.2); Carbon Dioxide 19 mmol/L (22-30); Chloride 102 mmol/L (98-107); Glucose 111 mg/dL (74-99); Non-African American GFR(CKD) 86 (>60 ml/min/1.73 sqM); Potassium 3.6 mmol/L (3.5-5.1); Sodium 137 mmol/L (137-145); Total Protein 8.5 g/dL (6.3-8.2)
[2024-10-23 20:21] LABS: INR 0.9 (<1.2); Partial Thromboplastin Time 22.3 sec (22.0-30.0); Prothrombin Time 10.2 sec (10.0-12.5)
[2024-10-23 20:27] LABS: Appearance,Urine Clear (Clear); Bilirubin,Urine Negative (Negative); Blood,Urine Negative (Negative); Color,Urine Colorless; Glucose,Urine (UA) Negative (Negative); Ketones,Urine Negative (Negative); Leukocyte Esterase,Urine Negative (Negative); Nitrite,Urine Negative (Negative); Protein,Urine Negative (Negative); Specific Gravity,Urine 1.004 (1.001-1.035); Urobilinogen,Urine <2.0 mg/dL (<2.0)
[2024-10-23] MEDS: LORazepam 2 MG/ML INJ IV STA (21:27)
[2024-10-23] MEDS: diphenhydrAMINE 50 MG/ML 1 ML VIAL IVP STA (22:15)
[2024-10-23] MEDS: KETOROLAC 15 MG/ML 1 ML VIAL IVP STA (22:16)
[2024-10-23] MEDS: PROCHLORPERAZINE INJ 10 MG/2 ML VIAL IVP STA (22:16)
[2024-10-23] MEDS: LABETALOL 5 MG/ML VIAL MDV IVP STA (22:17)
[2024-10-23] MEDS: SODIUM CHLORIDE 0.9% 1,000 ML IV ONE (22:18)
[2024-10-23 23:19] VITALS: BP 130/70; PULSE 105
== END 2024-10-23 23:28 | disposition home or self-care (01) ==
LOC: EC 18:51
DX: G44.209 Tension-type headache, unspecified, not intractable (principal); F41.9 Anxiety disorder, unspecified; I10 Essential (primary) hypertension; D72.829 Elevated white blood cell count, unspecified; E83.52 Hypercalcemia; R74.01 Elevation of levels of liver transaminase levels; R00.0 Tachycardia, unspecified; R73.9 Hyperglycemia, unspecified; Z88.2 Allergy status to sulfonamides; Z88.6 Allergy status to analgesic agent
CPT/HCPCS: 36415; 80053; 84484; 85025; 85610; 85730; 81003; 81025; 71046; 99284; 96374; 96375 ×6; 96361; J2060; J0360; J1200; J0780; J3360; J1885; J1920

== ENCOUNTER 2024-10-26 20:13 | Emergency (ER) | payer BC ==
[2024-10-26 20:46] VITALS: RESP 18
--- NOTE | 2024-10-26 22:35 | ED ---
General Adult HPI - General Chief complaint: Recheck/Abnormal Lab/Rx Stated complaint: Hypertension, Headache, Abdominal Pain Time Seen by Provider: 10/26/24 21:55 Source: patient Mode of arrival: ambulatory Limitations: no limitations - History of Present Illness Initial comments: This patient is a 44-year-old woman who states that she is just not feeling right. She states that for the past few days she has been feeling like her head had some pressure or fullness. She feels like her body is tight. She noticed that her blood pressure was elevated. She saw her clinic physician and was started on metoprolol. She had not previously been on any medication. She also had bought of blood pressure cuff and was checking her pressure at home and it was above 220. When she was feeling similar symptoms today she checked her blood pressure and it was again over 200 so she comes here to have evaluation. Patient states this is not worst headache of life. She is not having any strokelike symptoms. No chest pain, dyspnea, diaphoresis. No abdominal pain, nausea or vomiting. -: days(s) Consistency: constant Improves with: none Worsens with: none Associated Symptoms: denies other symptoms Treatments Prior to Arrival: none - Related Data Home Medications Medication Instructions Recorded Confirmed Fluticasone Nasal [place] [Flonase 1 spray EA NOSTRIL DAILY 01/12/16 10/23/24 Nasal [place]] Medroxyprogesterone Acetate 150 mg IM Q90D 01/12/16 10/23/24 [Depo-Provera] Desvenlafaxine Succinate [Pristiq] 100 mg PO DAILY 11/03/20 10/23/24 Cetirizine HCl [Zyrtec] 10 mg PO DAILY 10/23/24 10/23/24 Fexofenadine HCl [Shelly Allergy] 180 mg PO DAILY 10/23/24 10/23/24 Omeprazole Magnesium [PriLOSEC OTC] 20 mg PO DAILY 10/23/24 10/23/24 buPROPion XL [Wellbutrin XL] 150 mg PO DAILY 10/23/24 10/23/24 Allergies Allergy/AdvReac Type Severity Reaction Status Date / Time codeine Allergy "blacked Verified 10/26/24 20:46 out" Sulfa (Sulfonamide Allergy Rash/Hives Verified 10/26/24 20:46 Antibiotics) Review of Systems ROS Statement: Those systems with pertinent positive or pertinent negative responses have been documented in the HPI. ROS Other: All systems not noted in ROS Statement are negative. Constitutional: Denies: fever, chills, weakness Respiratory: Denies: cough, dyspnea Cardiovascular: Denies: chest pain, palpitations, edema Gastrointestinal: Denies: abdominal pain, nausea, vomiting, diarrhea Genitourinary: Denies: dysuria, hematuria Musculoskeletal: Denies: back pain Skin: Denies: rash Neurological: Reports: as per HPI, headache. Denies: weakness, numbness Psychiatric: Reports: anxiety Past Medical History Past Medical History: Hypertension Additional Past Medical History / Comment(s): ,migraines, POTS, neuropathy, Ch iari malformation (brain tissue extents into spinal canal- repaired with surgery) History of Any Multi-Drug Resistant Organisms: None Reported Past Surgical History: Section, Cholecystectomy Additional Past Surgical History / Comment(s): brain surg, Past Anesthesia/Blood Transfusion Reactions: Postoperative Nausea & Vomiting (PONV) Past Psychological History: Anxiety, Depression Smoking Status: Never smoker Past Alcohol Use History: Occasional Past Drug Use History: Marijuana - Past Family History Sister(s) Additional Family Medical History / Comment(s): neurotube defect General Exam Limitations: no limitations General appearance: alert, in no apparent distress Head exam: Present: atraumatic, normocephalic Eye exam: Present: normal appearance, PERRL, EOMI. Absent: scleral icterus, conjunctival injection ENT exam: Present: normal oropharynx Neck exam: Present: normal inspection Respiratory exam: Present: normal lung sounds bilaterally. Absent: respiratory distress, wheezes, rales, rhonchi, stridor, accessory muscle use Cardiovascular Exam: Present: regular rate, normal rhythm, normal heart sounds. Absent: systolic murmur, diastolic murmur, rubs, gallop GI/Abdominal exam: Present: soft. Absent: distended, tenderness, guarding, rebound, rigid, mass Extremities exam: Present: normal inspection, normal capillary refill. Absent: pedal edema, calf tenderness Back exam: Present: normal inspection. Absent: CVA tenderness (R), CVA tenderness (L) Neurological exam: Present: alert Skin exam: Present: warm, dry, intact, normal color. Absent: rash Course Vital Signs 10/26/24 10/26/24 10/27/24 20:40 22:40 00:38 Temperature 98.6 F 98.1 F Pulse Rate 90 89 91 Respiratory 18 18 Rate Blood Pressure 165/92 182/105 94/56 O2 Sat by Pulse 96 99 96 Oximetry EKG Findings - EKG Results: EKG: interpreted by ERMD, sinus rhythm (Rate 75 bpm), normal axis, normal QRS - Blocks, Foley, Hypertrophy, ST Abn: Repolarization changes or abnormalities: nonspecific abnormality, ST segment, and/or T wave Medical Decision Making - Lab Data Result diagrams: 10/26/24 22:30 10/26/24 22:30 Lab Results 10/26/24 10/26/24 Range/Units 22:30 22:30 WBC 11.44 H (4.50-10.00) 10*3/uL RBC 4.42 (4.10-5.20) 10*6/uL Hgb 15.2 H (12.0-15.0) g/dL Hct 42.7 (37.2-46.3) % MCV 96.6 (80.0-97.0) fL MCH 34.4 H (27.0-32.0) pg MCHC 35.6 (32.0-37.0) g/dL Plt Count 294 (140-440) 10*3/uL MPV 9.7 (9.5-12.2) fL Immature Gran % (Auto) 0.7 % Neutrophils % 57.6 % Lymphocytes % 31.7 % Monocytes % 7.6 % Eosinophils % 1.7 % Basophils % 0.7 % Immature Gran # 0.08 H (0.00-0.04) 10*3/uL Neutrophils # 6.58 (1.80-7.70) 10*3/uL Lymphocytes # 3.63 (0.90-5.00) 10*3/uL Monocytes # 0.87 (0.20-1.00) 10*3/uL Eosinophils # 0.20 (0.04-0.35) 10*3/uL Basophils # 0.08 (0.00-0.10) 10*3/uL Sodium 138 (137-145) mmol/L Potassium 3.9 (3.5-5.1) mmol/L Chloride 103 (98-107) mmol/L Carbon Dioxide 26 (22-30) mmol/L Anion Gap 9 mmol/L BUN 13 (7-17) mg/dL Creatinine 0.83 (0.52-1.04) mg/dL Est GFR (CKD-EPI)AfAm >90 (>60 ml/min/1.73 sqM) Est GFR (CKD-EPI)NonAf 85 (>60 ml/min/1.73 sqM) Glucose 98 (74-99) mg/dL Calcium 10.0 (8.4-10.2) mg/dL Magnesium 1.9 (1.6-2.3) mg/dL Total Bilirubin 0.5 (0.2-1.3) mg/dL AST 36 (14-36) U/L ALT 53 H (4-34) U/L Alkaline Phosphatase 91 (38-126) U/L Total Protein 7.4 (6.3-8.2) g/dL Albumin 4.2 (3.5-5.0) g/dL TSH 4.610 (0.465-4.680) mIU/L Disposition Clinical Impression: Hypertension Disposition: HOME SELF-CARE Condition: Good Instructions (If sedation given, give patient instructions): Hypertension (ED) Is patient prescribed a controlled substance at d/c from ED?: No Referrals: Bernice Groves MD [Primary Care Provider] - 1-2 days
[2024-10-26] MEDS: cloNIDine HCL 0.2 MG TAB PO STA (22:44)
[2024-10-26 23:03] LABS: Basophils # (A) 0.08 10*3/uL (0.00-0.10); Basophils % (A) 0.7 %; Eosinophils % (A) 1.7 %; HCT 42.7 % (37.2-46.3); HGB 15.2 g/dL (12.0-15.0); Lymphocytes # (A) 3.63 10*3/uL (0.90-5.00); Lymphocytes % (A) 31.7 %; MCH 34.4 pg (27.0-32.0); MCHC 35.6 g/dL (32.0-37.0); MCV 96.6 fL (80.0-97.0); Mean Platelet Volume 9.7 fL (9.5-12.2); Monocytes # (A) 0.87 10*3/uL (0.20-1.00); Monocytes % (A) 7.6 %; Neutrophils # (A) 6.58 10*3/uL (1.80-7.70); Neutrophils % (A) 57.6 %; Platelet Count 294 10*3/uL (140-440); RBC 4.42 10*6/uL (4.10-5.20); RDW 12.7 % (11.5-14.5); WBC 11.44 10*3/uL (4.50-10.00)
[2024-10-26 23:17] LABS: ALT 53 U/L (4-34); AST 36 U/L (14-36); African American GFR (CKD) >90 (>60 ml/min/1.73 sqM); Albumin 4.2 g/dL (3.5-5.0); Alkaline Phosphatase 91 U/L (38-126); Anion Gap 9 mmol/L; Blood Urea Nitrogen 13 mg/dL (7-17); Carbon Dioxide 26 mmol/L (22-30); Chloride 103 mmol/L (98-107); Glucose 98 mg/dL (74-99); Magnesium 1.9 mg/dL (1.6-2.3); Non-African American GFR(CKD) 85 (>60 ml/min/1.73 sqM); Potassium 3.9 mmol/L (3.5-5.1); Sodium 138 mmol/L (137-145); Total Bilirubin 0.5 mg/dL (0.2-1.3); Total Protein 7.4 g/dL (6.3-8.2)
[2024-10-27 00:39] VITALS: TEMP 98.1
[2024-10-27] MEDS: SODIUM CHLORIDE 0.9% 500 ML 500 ML IV STA (01:04)
[2024-10-27 01:36] VITALS: BP 138/73; PULSE 76
== END 2024-10-27 01:43 | disposition home or self-care (01) ==
LOC: EC 20:13
DX: I10 Essential (primary) hypertension (principal); Z88.2 Allergy status to sulfonamides; Z88.5 Allergy status to narcotic agent
CPT/HCPCS: 36415; 80053; 83735; 84443; 85025; 93005; 96360; 99283

== ENCOUNTER 2024-11-08 03:25 | Emergency (ER) | payer BC ==
[2024-11-08 03:28] VITALS: TEMP 97.9
--- NOTE | 2024-11-08 04:03 | ED ---
General Adult HPI - General Chief complaint: Recheck/Abnormal Lab/Rx Stated complaint: irregular bp Time Seen by Provider: 11/08/24 03:35 Source: patient Mode of arrival: ambulatory Limitations: no limitations - History of Present Illness Initial comments: Dictation was produced using [employer] dictation software. please excuse any grammatical, word or spelling errors. Chief Complaint: 44-year-old female with hypertension History of Present Illness: Patient is 44-year-old female she was instructed by her the nurse practitioner [facility]Ps office to come to the ER for systolic blood pressure above 200. Patient states that she had some of her blood pressure medications arranged by nurse practitioner, particularly discontinuation of Lopressor. Patient states she checked her blood pressure at home with systolic measurements of 203. Patient has a mild headache. She has a history of headaches. States is not the worst headache of her life or thunderclap. Denies any strokelike symptoms. No chest pain or shortness of breath. The ROS documented in this emergency department record has been reviewed and confirmed by me. Those systems with pertinent positive or negative responses have been documented in the HPI. All other systems are other negative and/or noncontributory. - Related Data Home Medications Medication Instructions Recorded Confirmed Fluticasone Nasal [place] [Flonase 1 spray EA NOSTRIL DAILY 01/12/16 10/23/24 Nasal [place]] Medroxyprogesterone Acetate 150 mg IM Q90D 01/12/16 10/23/24 [Depo-Provera] Desvenlafaxine Succinate [Pristiq] 100 mg PO DAILY 11/03/20 10/23/24 Cetirizine HCl [Zyrtec] 10 mg PO DAILY 10/23/24 10/23/24 Fexofenadine HCl [Shelly Allergy] 180 mg PO DAILY 10/23/24 10/23/24 Omeprazole Magnesium [PriLOSEC OTC] 20 mg PO DAILY 10/23/24 10/23/24 buPROPion XL [Wellbutrin XL] 150 mg PO DAILY 10/23/24 10/23/24 Allergies Allergy/AdvReac Type Severity Reaction Status Date / Time codeine Allergy "blacked Verified 11/08/24 03:28 out" Sulfa (Sulfonamide Allergy Rash/Hives Verified 11/08/24 03:28 Antibiotics) Review of Systems ROS Statement: Those systems with pertinent positive or pertinent negative responses have been documented in the HPI. ROS Other: All systems not noted in ROS Statement are negative. Past Medical History Past Medical History: Hypertension Additional Past Medical History / Comment(s): ,migraines, POTS, neuropathy, Chiari malformation (brain tissue extents into spinal canal- repaired with surgery) History of Any Multi-Drug Resistant Organisms: None Reported Past Surgical History: Section, Cholecystectomy Additional Past Surgical History / Comment(s): brain surg, Past Anesthesia/Blood Transfusion Reactions: Postoperative Nausea & Vomiting (PONV) Past Psychological History: Anxiety, Depression Smoking Status: Never smoker Past Alcohol Use History: Occasional Past Drug Use History: Marijuana - Past Family History Sister(s) Additional Family Medical History / Comment(s): neurotube defect General Exam - General Exam Comments Initial Comments: PHYSICAL EXAM: General Impression: Alert and oriented x3, not in acute distress HEENT: Normocephalic atraumatic, extra-ocular movements intact, pupils equal and reactive to light bilaterally, mucous membranes moist. Cardiovascular: Heart regular rate and rhythm Chest: Able to complete full sentences, no retractions, no tachypnea Abdomen: abdomen soft, non-tender, non-distended, no organomegaly Musculoskeletal: Pulses present and equal in all extremities, no peripheral edema Motor: no focal deficits noted Neurological: CN II-XII grossly intact, no focal motor or sensory deficits noted Skin: Intact with no visualized rashes Psych: Normal affect and mood Limitations: no limitations Course Vital Signs 11/08/24 11/08/24 03:26 03:47 Temperature 97.9 F Pulse Rate 108 H 92 Respiratory 20 16 Rate Blood Pressure 168/118 150/96 O2 Sat by Pulse 97 Oximetry EKG Findings - EKG Comments: EKG Findings:: My EKG interpretation: Ventricular rate 82, sinus rhythm,. 146, QRS 87, QTc 392. No MS prolongation, no QTC prolongation, no ST or T-wave changes noted. Overall, this EKG is unremarkable Medical Decision Making - Medical Decision Making Was pt. sent in by a medical professional or institution (, PA, PRODUCT TRANSFER PUMPER, urgent care, hospital, or care home...) When possible be specific @ -No Did you speak to anyone other than the patient for history (EMS, parent, family, police, friend...)? What history was obtained from this source @ -No Did you review nursing and triage notes (agree or disagree)? Why? @ -I reviewed and agree with nursing and triage notes Were old charts reviewed (outside hosp., previous admission, EMS record, old EKG, old radiological studies, urgent care reports/EKG's, care home records)? Report findings @ -No old charts were reviewed Differential Diagnosis (chest pain, altered mental status, abdominal pain women, abdominal pain men, vaginal bleeding, musculoskeletal, weakness, fever, dyspnea, syncope, headache, dizziness, GI bleed, back pain, seizure, CVA, palpatations, mental health)? @ -Not applicable EKG interpreted by me (3pts min.). @ -See above X-rays interpreted by me (1pt min.). @ -None done CT interpreted by me (1pt min.). @ -None done U/S interpreted by me (1pt. min.). @ -None done What testing was considered but not performed or refused? (CT, X-rays, U/S, labs)? Why? @ -None What meds were considered but not given or refused? Why? @ -None Was smoking cessation discussed for >3mins.? @ -No Were there social determinants of health that impacted care today? How? (H omelessness, low income, unemployed, alcoholism, drug addiction, transportation, low edu. Level, literacy, decrease access to med. care, intermediate, rehab)? @ -No Was there de-escalation of care discussed even if they declined (Discuss DNR or withdrawal of care, Hospice)? DNR status @ -No What co-morbidities impacted this encounter? (DM, HTN, Smoking, COPD, CAD, Cancer, CVA, ARF, Chemo, Hep., AIDS, mental health diagnosis, sleep apnea, morbid obesity)? @ -Hypertension Was patient admitted / discharged? Hospital course, mention meds given and route, prescriptions, significant lab abnormalities, going to OR and other pertinent info. @ -34-year-old female presents emerged part with hypertension. She was instructed by nurse practitioner from PCPs office to come to the ER if her systolic blood pressures measured above 200 millimeters of mercury. Patient well-appearing has no symptoms of hypertensive emergency. Laboratory evaluation obtained. Labs unremarkable. Patient observed emergency department. Found to be stable medical addition. Patient states she is under a lot of stress and she is frustrated that she cannot find a stable blood pressure regimen. On the last patient be discharged she has an appointment with a primary care doctor tomorrow. Did you discuss the management of the patient with other professionals (professionals i.e. , PA, PRODUCT TRANSFER PUMPER, lab, RT, psych nurse, social problems specialist, residential gas heat technician, teacher, uniform patrol police officer, machine adjuster leader case trim)? Give summary @ -No Was critical care preformed (if so, how long)? @ -No Undiagnosed new problem with uncertain prognosis? @ -No Drug Therapy requiring intensive monitoring for toxicity (Heparin, Nitro, Insulin, Cardizem)? @ -No Were any procedures done? @ -No Diagnosis/symptom? Acute, or Chronic, or Acute on Chronic? Uncomplicated (with out systemic symptoms) or Complicated (systemic symptoms)? @ -Hypertension, no high risk features Side effects of treatment? @ -No Exacerbation, Progression, or Severe Exacerbation? @ -No Poses a threat to life or bodily function? How? (Chest pain, [place], CO, pneumonia, PE, COPD, DKA, ARF, appy, cholecystitis, CVA, Diverticulitis, Homicidal, Suicidal, threat to staff... and all critical care pts) @ -No - Lab Data Result diagrams: 11/08/24 03:47 11/08/24 03:47 Lab Results 11/08/24 11/08/24 11/08/24 Range/Units 03:47 03:47 03:47 WBC 9.56 (4.50-10.00) 10*3/uL RBC 4.44 (4.10-5.20) 10*6/uL Hgb 15.1 H (12.0-15.0) g/dL Hct 42.8 (37.2-46.3) % MCV 96.4 (80.0-97.0) fL MCH 34.0 H (27.0-32.0) pg MCHC 35.3 (32.0-37.0) g/dL Plt Count 324 (140-440) 10*3/uL MPV 9.9 (9.5-12.2) fL Immature Gran % (Auto) 0.4 % Neutrophils % 57.0 % Lymphocytes % 32.1 % Monocytes % 7.5 % Eosinophils % 2.3 % Basophils % 0.7 % Immature Gran # 0.04 (0.00-0.04) 10*3/uL Neutrophils # 5.44 (1.80-7.70) 10*3/uL Lymphocytes # 3.07 (0.90-5.00) 10*3/uL Monocytes # 0.72 (0.20-1.00) 10*3/uL Eosinophils # 0.22 (0.04-0.35) 10*3/uL Basophils # 0.07 (0.00-0.10) 10*3/uL PT 10.3 (10.0-12.5) sec INR 0.9 (<1.2) APTT 22.3 (22.0-30.0) sec Sodium 139 (137-145) mmol/L Potassium 4.2 (3.5-5.1) mmol/L Chloride 102 (98-107) mmol/L Carbon Dioxide 24 (22-30) mmol/L Anion Gap 13 mmol/L BUN 13 (7-17) mg/dL Creatinine 0.85 (0.52-1.04) mg/dL Est GFR (CKD-EPI)AfAm >90 (>60 ml/min/1.73 sqM) Est GFR (CKD-EPI)NonAf 83 (>60 ml/min/1.73 sqM) Glucose 117 H (74-99) mg/dL Calcium 10.1 (8.4-10.2) mg/dL Total Bilirubin 0.8 (0.2-1.3) mg/dL AST 41 H (14-36) U/L ALT 73 H (4-34) U/L Alkaline Phosphatase 90 (38-126) U/L Troponin I (0.000-0.034) ng/mL Total Protein 7.4 (6.3-8.2) g/dL Albumin 4.2 (3.5-5.0) g/dL 11/08/24 Range/Units 03:47 WBC (4.50-10.00) 10*3/uL RBC (4.10-5.20) 10*6/uL Hgb (12.0-15.0) g/dL Hct (37.2-46.3) % MCV (80.0-97.0) fL MCH (27.0-32.0) pg MCHC (32.0-37.0) g/dL Plt Count (140-440) 10*3/uL MPV (9.5-12.2) fL Immature Gran % (Auto) % Neutrophils % % Lymphocytes % % Monocytes % % Eosinophils % % Basophils % % Immature Gran # (0.00-0.04) 10*3/uL Neutrophils # (1.80-7.70) 10*3/uL Lymphocytes # (0.90-5.00) 10*3/uL Monocytes # (0.20-1.00) 10*3/uL Eosinophils # (0.04-0.35) 10*3/uL Basophils # (0.00-0.10) 10*3/uL PT (10.0-12.5) sec INR (<1.2) APTT (22.0-30.0) sec Sodium (137-145) mmol/L Potassium (3.5-5.1) mmol/L Chloride (98-107) mmol/L Carbon Dioxide (22-30) mmol/L Anion Gap mmol/L BUN (7-17) mg/dL Creatinine (0.52-1.04) mg/dL Est GFR (CKD-EPI)AfAm (>60 ml/min/1.73 sqM) Est GFR (CKD-EPI)NonAf (>60 ml/min/1.73 sqM) Glucose (74-99) mg/dL Calcium (8.4-10.2) mg/dL Total Bilirubin (0.2-1.3) mg/dL AST (14-36) U/L ALT (4-34) U/L Alkaline Phosphatase (38-126) U/L Troponin I <0.012 (0.000-0.034) ng/mL Total Protein (6.3-8.2) g/dL Albumin (3.5-5.0) g/dL Disposition Clinical Impression: Hypertension Disposition: HOME SELF-CARE Condition: Fair Instructions (If sedation given, give patient instructions): Hypertension (ED) Is patient prescribed a controlled substance at d/c from ED?: No Referrals: Bernice Groves MD [Primary Care Provider] - 1-2 days Time of Disposition: 05:12
[2024-11-08 04:21] LABS: Basophils # (A) 0.07 10*3/uL (0.00-0.10); Basophils % (A) 0.7 %; Eosinophils # (A) 0.22 10*3/uL (0.04-0.35); Eosinophils % (A) 2.3 %; HCT 42.8 % (37.2-46.3); HGB 15.1 g/dL (12.0-15.0); Lymphocytes # (A) 3.07 10*3/uL (0.90-5.00); Lymphocytes % (A) 32.1 %; MCHC 35.3 g/dL (32.0-37.0); MCV 96.4 fL (80.0-97.0); Mean Platelet Volume 9.9 fL (9.5-12.2); Monocytes # (A) 0.72 10*3/uL (0.20-1.00); Monocytes % (A) 7.5 %; Neutrophils # (A) 5.44 10*3/uL (1.80-7.70); Platelet Count 324 10*3/uL (140-440); RBC 4.44 10*6/uL (4.10-5.20); RDW 12.6 % (11.5-14.5); WBC 9.56 10*3/uL (4.50-10.00)
[2024-11-08 04:26] LABS: ALT 73 U/L (4-34); AST 41 U/L (14-36); African American GFR (CKD) >90 (>60 ml/min/1.73 sqM); Albumin 4.2 g/dL (3.5-5.0); Alkaline Phosphatase 90 U/L (38-126); Anion Gap 13 mmol/L; Blood Urea Nitrogen 13 mg/dL (7-17); Calcium 10.1 mg/dL (8.4-10.2); Carbon Dioxide 24 mmol/L (22-30); Chloride 102 mmol/L (98-107); Glucose 117 mg/dL (74-99); Non-African American GFR(CKD) 83 (>60 ml/min/1.73 sqM); Potassium 4.2 mmol/L (3.5-5.1); Sodium 139 mmol/L (137-145); Total Bilirubin 0.8 mg/dL (0.2-1.3); Total Protein 7.4 g/dL (6.3-8.2)
[2024-11-08 04:35] LABS: INR 0.9 (<1.2); Partial Thromboplastin Time 22.3 sec (22.0-30.0); Prothrombin Time 10.3 sec (10.0-12.5)
[2024-11-08] MEDS: ONDANSETRON 4 MG/2 ML VIAL IM STA (04:44)
[2024-11-08] MEDS: ONDANSETRON 4 MG/2 ML VIAL IVP STA (04:44)
[2024-11-08] MEDS: ONDANSETRON 4 MG ODT STARTER PACK 2 TAB BTL PO STA (05:21)
[2024-11-08 05:26] VITALS: BP 163/86; PULSE 81; RESP 18
== END 2024-11-08 05:30 | disposition home or self-care (01) ==
LOC: EC 03:25
DX: I10 Essential (primary) hypertension (principal); Z88.2 Allergy status to sulfonamides; Z88.5 Allergy status to narcotic agent
CPT/HCPCS: 36415; 93005; 80053; 84484; 85025; 85610; 85730; 99283; 96374; J2405; S0119

== ENCOUNTER → 2024-12-27 | Outpatient (CLI) | payer BC ==
[2024-12-27 14:28] VITALS: BP 140/100; PULSE 106; RESP 16; TEMP 97.9
--- NOTE | 2024-12-27 14:56 | P.SLEEP ---
History of Present Illness DATE: 12/27/2024 CONSULTATION/NEW PATIENT EVALUATION HISTORY OF PRESENT ILLNESS/SLEEP-WAKE EVALUATION: 44-year-old lady had been e valuated in the sleep center for possible obstructive sleep apnea hypopnea syndrome. SLEEP SCHEDULE: Usually sleep schedule from 43155:30 PM to 6 AM on and from 1011 PM to 8 AM on weekend. FALLING ASLEEP: Usually no significant problems with falling asleep. DURING SLEEP: Patient has loud snoring, witnessed episodes of stop breathing during the sleep by her , wakes up from sleep up to 4 times with 2 episodes of nocturia. Positive history of grinding teeth, dry mouth, panic attacks, palpitations, episodes of gasping for air and sweating positive history of leg, arm send whole body jerking movements. No history of hypnogogical hallucinations, sleep paralysis, or cataplexy. DURING THE DAY/WAKE STATE: In the morning patient wake up tired, has difficulties to pay attention, has problems with concentration, irritability, depression and anxiety. Clarence sleepiness scale is increased to 13. Patient takes nap at 3 to 4 PM. PAST MEDICAL HISTORY: Hypertension, depression, anxiety, Chiari malformation. PAST SURGICAL HISTORY: Brain surgery for Chiari malformation, adenoidectomy, surgical treatment for nasal septum deviation and for narrow nasal passages. MEDICATIONS: Please see below. SOCIAL HISTORY: Please see below. FAMILY HISTORY: Please see below. REVIEW OF SYSTEMS: Loud snoring, multiple awakenings from sleep, sleepiness during the day. No fevers. No double vision. No recent chest pain. No shortness of breath. No abdominal pain. No bleeding episodes. No blood in urine. No seizure episodes. PHYSICAL EXAMINATION: GENERAL: A pleasant patient without any distress. VITAL SIGNS: Please see below, weight 203 pounds, BMI 35.9. HEENT: PERRLA, EOMI. Evaluation of oropharynx showed tongue protrudes midline, low position of soft palate Mallampati 4, retrognathia 2 mm, restriction of nasal breathing. NECK: Supple. No JVD. Thyroid is not palpable. 15.5 inches in circumference. LUNGS: Clear to percussion and to auscultation. Good air exchange. No wheezing or rhonchi. HEART: S1, S2 regular. No murmurs, gallops or rubs. ABDOMEN: Soft and nontender. Bowel sounds are present. No organomegaly appreciated. EXTREMITIES: No clubbing or cyanosis. KILN PLACER: Awake, alert, and oriented x3. Cranial nerves 2 to 7 intact. There is no fasciculation or atrophy noted. No focal deficits observed. ASSESSMENT: 1. Loud snoring, witnessed episodes of stop breathing during sleep, extremely low position of soft palate Mallampati 4, retrognathia, restriction of nasal breathing, sleepiness with Clarence Sleepiness Scale 13. Obstructive sleep apnea hypopnea syndrome. 2. Obesity, BMI 35.9. 3. Status post surgical treatment for Chiari malformation in 2013 with decompression. 4. Restless leg symptoms. 5. Jerking movements during the sleep, possible periodic limb movements. 6 . History of depression. 7. History of anxiety. 8. Status post adenoidectomy. 9 . Status post surgical treatment for nasal septal deviation. 10. Hypertension. 11. Status post . PLAN: 1. Polysomnography for evaluation of patient's breathing during sleep. 2. Following plan after reading sleep study. 3. Preferable position during sleep on the side. 4. No driving if patient feels any sleepiness. Patient is aware of civil and criminal liability for unsafe driving. 5. Sleep hygiene with regular sleep time for at least 7.5-8 hours. 6. Watching and losing weight. Thank you very much for referring this patient for consultation. Sincerely, Antoine Crockett MD, PhD, FAASM. Diplomat of [employer], Sleep Medicine Board by [employer] [facility] [place] cc: Bernice Groves MD Past Medical History Past Medical History: Hypertension Additional Past Medical History / Comment(s): ,migraines, POTS, neuropathy, Chiari malformation (brain tissue extents into spinal canal- repaired with surgery) History of Any Multi-Drug Resistant Organisms: None Reported Past Surgical History: Section, Cholecystectomy Additional Past Surgical History / Comment(s): brain surg, Past Anesthesia/Blood Transfusion Reactions: Postoperative Nausea & Vomiting (PONV) Past Psychological History: Anxiety, Depression Smoking Status: Never smoker Past Alcohol Use History: Occasional Past Drug Use History: Marijuana - Past Family History Sister(s) Additional Family Medical History / Comment(s): neurotube defect, Chiari Malformatioj Father Family Medical History: Coronary Artery Disease (CAD), Hypertension, Rheumatoid Arthritis (RA) Additional Family Medical History / Comment(s): snoring Son(s) Family Medical History: Rheumatoid Arthritis (RA) Additional Family Medical History / Comment(s): Chiari Malformation, Theter cord syndrom Medications and Allergies Home Medications Medication Instructions Recorded Confirmed Type Fluticasone Nasal [place] [Flonase 1 spray EA NOSTRIL DAILY 01/12/16 10/23/24 History Nasal [place]] Medroxyprogesterone Acetate 150 mg IM Q90D 01/12/16 10/23/24 History [Depo-Provera] Desvenlafaxine Succinate [Pristiq] 100 mg PO DAILY 11/03/20 10/23/24 History Cetirizine HCl [Zyrtec] 10 mg PO DAILY 10/23/24 10/23/24 History Fexofenadine HCl [Shelly Allergy] 180 mg PO DAILY 10/23/24 10/23/24 History Omeprazole Magnesium [PriLOSEC OTC] 20 mg PO DAILY 10/23/24 10/23/24 History buPROPion XL [Wellbutrin XL] 150 mg PO DAILY 10/23/24 12/27/24 History ALPRAZolam [Xanax] 0.25 mg PO DIRECTED PRN 12/27/24 12/27/24 History Amitriptyline HCl 10 mg PO DAILY 12/27/24 12/27/24 History Losartan Potassium 100 mg PO DAILY 12/27/24 12/27/24 History hydroCHLOROthiazide [Inzirqo] 12.5 mg PO DAILY 12/27/24 12/27/24 History Allergies Allergy/AdvReac Type Severity Reaction Status Date / Time codeine Allergy "blacked Verified 11/08/24 03:28 out" Sulfa (Sulfonamide Allergy Rash/Hives Verified 11/08/24 03:28 Antibiotics) Physical Exam Vitals: Vital Signs Temp Pulse Resp BP Pulse Ox 12/27/24 14:26 97.9 F 106 H 16 140/100 99 Intake and Output 12/26/24 12/27/24 12/27/24 22:59 06:59 14:59 Other: Weight 92.079 kg Sleep Note - Sleep Data ESS Total: 13 - Sleep Note Sleep Note: Temperature: 97.9 F Pulse Rate: 106 Respiratory Rate: 16 Blood Pressure: 140/100 SpO2: 99 Height: 5 ft 3 in Weight: 92.079 kg BMI: Neck Circumference: 15.5
== END ==
LOC: 3 N SLEEP 13:36
PROVIDERS: ATTEND Internal Medicine
DX: G47.33 Obstructive sleep apnea (adult) (pediatric) (principal); E66.9 Obesity, unspecified; G25.81 Restless legs syndrome; F32.A Depression, unspecified; F41.9 Anxiety disorder, unspecified; I10 Essential (primary) hypertension; Z68.35 Body mass index [BMI] 35.0-35.9, adult; Z90.49 Acquired absence of other specified parts of digestive tract; Z98.890 Other specified postprocedural states; Z88.5 Allergy status to narcotic agent; Z88.2 Allergy status to sulfonamides
CPT/HCPCS: 99211

== ENCOUNTER 2025-02-04 19:43 | Outpatient (CLI) | payer BC ==
--- NOTE | 2025-02-07 14:53 | P.PCN ---
Description of Procedure: POLYSOMNOGRAPHY REPORT PROCEDURE(S)/DATE(S): Polysomnography 02/04/2025 CLINICAL: Patient has been seen in the sleep center for evaluation of obstructive sleep apnea-hypopnea syndrome. Please see my consultation. Sleep study has been done for evaluation of patient breathing during the sleep. PROCEDURE: The standard montage for clinical polysomnography included the electroencephalogram, the electrooculogram, the mentalis surface electromyography and Lead II cardiography. The respiratory battery consisted of measurements of nasal/buccal air flow, pressure transducer measurements from nose, thoracic and/or abdominal effort and intercostal surface electromyography. Video monitoring has been done to check for any parasomnia events. Nocturnal oxyhemoglobin saturations were obtained by finger oximetry. Step-hernandez titration with positive airway pressure was utilized to control the respiratory events, if necessary. RESULTS: During the diagnostic sleep study sleep efficiency was decreased to 77.1%. Latency to sleep onset was prolonged to 88.0 min. Sleep architecture showed stage NI was increased to 17.6%, Delta sleep was absent 0%, REM sleep was short 16.9%. Respiratory channel showed 0 obstructive apneas, 0 mixed apneas, 0 central apneas, 375 hypopneas with lowest oxygen level 78%. Total apnea hypopnea index was 68.8. Heart rate was in the range between 78 and 94, average 86. EMG showed 0.7 periodic limb movements per hour with 0 micro-arousals per hour. IMPRESSIONS: 1. Severe obstructive sleep apnea hypopnea syndrome. 2. No significant periodic limb movements have been documented. Please see other impressions from consultation PLAN: 1. The patient will have PAP titration for correction of respiratory abnormalities during the sleep. 2. Losing weight program. 3. Sleep hygiene with regular time in bed for at least 7-1/2 hours. 4. No driving if feeling sleepiness. Thank you very much for allowing me to participate in the management of your patient. Sincerely, Antoine Crockett MD, PhD, FAASM. Diplomat of [employer], Sleep Medicine Board by [employer] User Interface Developer of [facility] [place] cc: Bernice Groves MD
== END 2025-02-05 05:30 | disposition home or self-care (01) ==
LOC: 3 N SLEEP 19:43
PROVIDERS: ATTEND Internal Medicine
DX: G47.33 Obstructive sleep apnea (adult) (pediatric) (principal); Z88.5 Allergy status to narcotic agent; Z88.2 Allergy status to sulfonamides
CPT/HCPCS: 95810